=== PATIENT | female | born 1935 | race Caucasian/White ===

== ENCOUNTER → 2021-03-30 13:01 | Outpatient (BNVA) | payer MEDICARE, SELFPAY | PROVIDERS: Family Provider Emergency Medicine; PCP Emergency Medicine; Visit Provider Nurse Practitioner Family | DX: Z20.822 Contact with and (suspected) exposure to COVID-19 (principal) | CPT/HCPCS: 87635 ==

== ENCOUNTER 2023-04-21 10:20 | Outpatient (CLI) | payer MEDICARE, SELFPAY ==
--- NOTE | 2023-04-21 10:31 | MR_ITS ---
WS: [id number] MRI LUMBAR SPINE NONCONTRAST HISTORY: LUMBAR REGION RADICULOPATHY COMPARISON: None available. TECHNIQUE: Sagittal and axial multisequence imaging is submitted. Marked degenerative changes of the cervical and thoracic spine. Degenerative scoliosis and increased thoracic kyphosis. Components of mild cervical stenosis throughout the cervical spine. Central disc p rotrusion at T9-10 contacts the thoracic cord. L3 anterolisthesis by 4.4 mm. L4 anterolisthesis by 6.1 mm. L5 anterolisthesis by 5.3 mm. Disc spaces are narrowed with mild desiccation. No acute fractures or marrow edema. Conus terminates normally at L1. L1-L2: Mild bilateral facet joint arthritis and ligamentum flavum hypertrophy. No stenosis. L2-L3: Mild annular disc bulging encroaching upon the subarticular recesses and the traversing L3 ner ve roots. Mild central, bilateral subarticular recess and foraminal stenosis. L3-L4: Marked annular disc bulging with severe ligamentum flavum hypertrophy and facet arthritis. Fac et joints contain fluid and with mild widening. Moderate to severe central, bilateral subarticular re cess and foraminal stenosis. There is disc contacting the L3 and L4 nerve roots. L4-L5: Diffuse annular disc bulging with severe ligamentum flavum and facet arthritis. Increased flui d in the facet joints. Disc encroachment into the subarticular recesses with moderate central, bilate ral subarticular recess and foraminal stenosis. Disc contacts the L4 and L5 nerve roots. L5-S1: Annular disc bulge with a central disc protrusion. Disc contacts the S1 nerve roots centrally. Mild bilateral foraminal stenosis. Mild ectasia abdominal aorta. IMPRESSION: 1. L3-4: Moderate to severe central, bilateral subarticular recess and foraminal stenosis. Disc conta cts the L3 and L4 nerve roots. 2. L4-5: Moderate central, bilateral subarticular recess and foraminal stenosis. Disc contacts the L4 and L5 nerve roots. 3. L5-S1: Mild disc contact on the S1 nerve roots. Mild foraminal stenosis. 4. L2-3: Mild central, bilateral subarticular recess and foraminal stenosis. There is mild contact up on the traversing L3 nerve roots. 5. Component of cervical canal stenosis identified on the localizing image. 6. L3, L4 and L5 anterolisthesis, 4.4 mm, 6.1 mm, 5.3 mm respectively.
== END 2023-04-21 10:21 | disposition home or self-care (01) ==
LOC: RAD 10:24
PROVIDERS: PCP Emergency Medicine; Visit Provider Physician Assistant Medical
DX: M47.26 Other spondylosis with radiculopathy, lumbar region (principal); M51.36 Other intervertebral disc degeneration, lumbar region; M41.50 Other secondary scoliosis, site unspecified; M48.061 Spinal stenosis, lumbar region without neurogenic claudication
CPT/HCPCS: 72148

== ENCOUNTER 2023-08-02 12:29 | Emergency (ER) | payer MEDICARE, SELFPAY ==
[2023-08-02 12:34] VITALS: BP 177/63; PULSE 67; RESP 18; TEMP 36.8; O2SAT 99; BMI 31.9
--- NOTE | 2023-08-02 13:28 | XR_ITS ---
WS: [id number] Chest AP portable upright, with right rib detail, 4 views, 08/02/2023 Clinical Data: fall Comparison: None. Findings: The lungs show no nodules, masses, or effusions. The heart is normal. No pneumothorax is seen. There is minimal patchy opacity in the left lower lobe which could represent effusion, pneumonia or atelect asis. There is a small right pleural effusion. The aortic arch shows calcification and tortuosity. The ribs are intact. No rib fractures seen. No subcutaneous emphysema is present. Impression: 1. Minimal bilateral pleural effusions. 2. Patchy opacity in left lower lobe which could represent atelectasis and/or pneumonia. 3. Atherosclerosis. 4. Negative right rib detail.
--- NOTE | 2023-08-02 15:11 | W.ED.FALL ---
HPI - Fall General: Chief Complaint: Fall Stated Complaint: fell(week ago), right side abd pain Time Seen by Provider: 08/02/23 15:01 Source: patient Mode of arrival: wheelchair Limitations: no limitations History of Present Illness: Patient is a very nice 88-year-old female presents to ED today with a complaint of right rib pain. Patient tells me approximately 6 days ago she was turning trying to get into her recliner when she tripped and fell and struck her right ribs on a coffee table. Patient states she has had pain since. She states pain does not seem to be worsening but it does not seem to be improving either. Pain seems to be worse with movement, coughing, deep inhalation. Patient has not developed a cough. No fevers. She does not complain of abdominal pain. She denies striking her head or LOC. She has no other physical complaints apart from the right rib pain at this time. MD complaint: fall Onset (ago): day(s) Fall from: standing Fall witnessed: no Place fall occurred: home Loss of consciousness: None Prolonged down time: no Symptoms prior to fall: none Context: tripped/slipped Location of injury: chest Associated symptoms-after fall: Reports chest pain (R rib pain); Denies abdominal pain, headache(s), hematuria, lightheadedness or neck pain Review of Systems Const: Denies: fever(s), chills, body aches, fatigue or malaise Card: Reports: chest pain (R rib pain); Denies: palpitations, irregular heart rhythm, edema, swelling of feet/ankles, lightheadedness, syncope, pre-syncope, dyspnea on exertion, orthopnea, leg pain with exertion or acrocyanosis Resp: Reports: pain on inspiration; Denies: dyspnea, productive cough, non-productive cough, wheezing, stridor, change in phlegm color, hemoptysis or chest congestion GI: Denies: abdominal pain, nausea, vomiting or diarrhea : Denies: flank pain, dysuria or hematuria Musc: Denies: neck pain, back pain, extremity pain or joint pain Skin/Breast: Reports: other (ecchymosis R ribs) Neuro: Denies: headache(s), numbness in extremities, weakness in extremities or sensory changes PFS ED PFSH: Medical History Benign hypertension Hyperlipidemia Surgical History H/O: hysterectomy H/O vein stripping S/P cholecystectomy Social History Smoking and tobacco/nicotine status: former use of tobacco/nicotine Quit status (tobacco/nicotine): has quit using Year quit tobacco: 1999 Alcohol intake: never Substance/Drug Use: never Current gender identity: Female Female Reproductive History: Spontaneous abortions: No Physical Exam Const: COMMON NORMALS: no acute distress, average body habitus, patient oriented x3, no limitations, healthy appearing, alert and well nourished HENMT: COMMON NORMALS: normocephalic and atraumatic HEAD & SCALP: normal to inspection, normocephalic and atraumatic Neck/C-Spine: COMMON NORMALS: full ROM GENERAL: Yes normal visual inspection CERVICAL SPINE: No Cervical spine tenderness Chest: OTHER: healing/old yellowing ecchymosis R lateral ribs without underlying crepitus; lung sounds normal Resp: COMMON NORMALS: normal respiratory effort and clear to auscultation bilaterally AUSCULTATION: clear to auscultation bilaterally Cardio: COMMON NORMALS: regular rate and regular rhythm RATE: regular rate RHYTHM: regular rhythm GI: COMMON NORMALS: Normal to inspection, nondistended, normoactive bowel sounds present, Soft to palpation, non-tender, No hepatosplenomegaly present and no masses INSPECTION: Yes normal to inspection PALPATION: Yes Soft to palpation and Yes No hepatosplenomegaly present OTHER: no pain to RUQ : COMMON NORMALS: Yes no CVA tenderness BLADDER/KIDNEY EXAM: Yes no CVA tenderness Back/Pelvis: COMMON NORMALS: no CVA tenderness and thoracic and lumbar spine normal to inspection Extremity: COMMON NORMALS: normal to inspection GENERAL: Yes normal exam except as noted Neuro: COMMON NORMALS: patient oriented x3 SENSORIUM/ORIENTATION: Yes alert Course Vital Signs: Vital signs: Vital Signs Temperature 98.1 F 08/02/23 15:28 Pulse Rate 66 08/02/23 15:28 Respiratory Rate 18 08/02/23 15:28 Blood Pressure 147/82 08/02/23 15:28 Pulse Oximetry 93 08/02/23 15:28 Oxygen Delivery Me thod Room Air 08/02/23 15:18 MDM - Fall Medical Decision Making Patient has old/healing ecchymosis to her right lateral ribs without underlying crepitus. X-ray rib films is negative for acute rib fracture. There are minimal bilateral pleural effusions. Radiologist did comment on a patchy opacity in her left lower lobe that could represent atelectasis and/or pneumonia. Clinically I do not have any concern for pneumonia. Patient states her pain is not worsening and just has failed to improve which is fairly common following significant rib contusions. Her vital signs are stable. She has no tenderness to her abdomen or right upper quadrant. I do not have any concern for liver injury. She chronically takes 7.5 mg hydrocodone. Recommend she continue this. Discussed her rib fractures or even hairline rib fractures can sometimes take weeks to heal. Strict return ED precautions given. Medical Records I reviewed the patient's medical records. All radiology interpretation(s) finalized by discharge Discharge Plan Discharge Patient Disposition: Home Clinical Impression: Contusion of rib on right side Qualifiers: Encounter type: initial encounter Qualified Code(s): S20.211A - Contusion of right front wall of thorax, initial encounter Condition: Stable Prescriptions: No Action lovastatin 10 mg tablet 10 mg PO DAILY omeprazole 40 mg capsule,delayed release(DR/EC) 40 mg PO DAILY sucralfate 1 gram tablet 1 gm PO QID levothyroxine 50 mcg capsule 50 mcg PO DAILY hydrocodone-acetaminophen [[place]] 7.5-325 mg tablet 1 tab PO Q4H PRN (Reason: CHRONIC BACK PAIN ) losartan 25 mg tablet 100 mg PO DAILY Discharge Orders: Discharge ED (Routine); Ordered 08/02/23 Ordered By: Renee Saleem Referrals: Le Ibrahim MD [Primary Care Provider] - Patient Instructions: Rib Contusion (ED) Activity Restrictions/Additional Instructions: As we discussed you may continue taking your normal hydrocodone as needed for pain. You can take 1 tablet up to every 4-6 hours as needed. You may also try ice and heat. As we discussed you need to return to the emergency department for worsening chest pain, shortness of breath, difficulty breathing, fevers, severe abdominal pain, generally feeling worse or unwell, lightheadedness/dizziness, or any other concerns you may have. Hope you begin to feel better soon. Coding Level of Care Code ED Pump And Still Operator for Lexa Kothari
[2023-08-02 15:18] VITALS: BP 147/82; PULSE 66; RESP 18; TEMP 36.7; O2SAT 93
[2023-08-02 15:28] VITALS: BP 147/82; PULSE 66; RESP 18; TEMP 36.7; O2SAT 93
== END 2023-08-02 15:40 | disposition home or self-care (01) ==
PROVIDERS: Emergency Provider Physician Assistant; PCP Family Medicine
DX: S20.211A Contusion of right front wall of thorax, initial encounter (principal); I10 Essential (primary) hypertension; E78.5 Hyperlipidemia, unspecified; Z87.891 Personal history of nicotine dependence; W01.190A Fall on same level from slipping, tripping and stumbling with subsequent striking against furniture, initial encounter
CPT/HCPCS: 71101; 99283

== ENCOUNTER 2024-04-06 21:47 | Emergency (ER) | payer MEDICARE, SELFPAY ==
--- NOTE | 2024-04-06 21:53 | XRR_ITS ---
PROCEDURE INFORMATION: Exam: XR Chest Exam date and time: 04/06/2024 9:59 PM Age: 88 years old Clinical indication: Prior surgery; Surgery date: 6+ months; Surgery type: Gb; Patient HX: General weakness with fever; Additional info: Fatigue TECHNIQUE: Imaging protocol: Radiologic exam of the chest. Views: 1 view. COMPARISON: CR XR ribs RT mn 3V w CXR1V [id number] 08/02/2023 1:35 PM FINDINGS: Lungs: Mild left peripheral basilar atelectasis again noted. No consolidation. Pleural spaces: Unremarkable. No pleural effusion. No pneumothorax. Heart/Mediastinum: Unremarkable. No cardiomegaly. Diaphragm: Mild elevation of the right hemidiaphragm. Bones/joints: Unremarkable. XR/XR chest 1V portable [id number] IMPRESSION: 1. No clear-cut acute plain radiographic cardiopulmonary abnormality. 2. Mild elevation of the right hemidiaphragm.
[2024-04-06 21:58] VITALS: BP 161/64; PULSE 59; RESP 18; TEMP 36.9; O2SAT 99; BMI 32.5
--- NOTE | 2024-04-06 22:01 | ED_ITS ---
HPI - General Adult 2 General: Chief complaint: Fever Stated complaint: GENERAL MALAISE Time Seen by Provider: 04/06/24 21:53 History of Present Illness: Patient presents from [facility] with complaints of general malaise nausea shortness of breath and fever going on for the last 2 to 3 days. Patient has no localized complaints she says she does not feel good all over. Patient is not been around any sick contacts that she knows of. Related Data Home Medications Medication Instructions Recorded Confirmed hydrocodone 7.5 mg-acetaminophen 1 tab PO Q4H PRN CHRONIC BACK PAIN 04/11/20 04/25/23 325 mg tablet ([place]) levothyroxine 50 mcg capsule 50 mcg PO DAILY 04/11/20 04/25/23 lovastatin 10 mg tablet 10 mg PO DAILY 04/11/20 04/25/23 omeprazole 40 mg capsule,delayed 40 mg PO DAILY 04/11/20 04/25/23 release sucralfate 1 gram tablet 1 gm PO QID 04/11/20 04/25/23 losartan 25 mg tablet 100 mg PO DAILY 04/25/23 04/25/23 Allergies Allergy/AdvReac Type Severity Reaction Status Date / Time No Known Allergies Allergy Verified 04/25/23 11:17 Review of Systems 2 General: Reports: 10 or more systems reviewed and unremarkable except in HPI and below PFSH ED 2 PFSH: Medical History Benign hypertension Hyperlipidemia Surgical History H/O: hysterectomy H/O vein stripping S/P cholecystectomy Social History Smoking and tobacco/nicotine status: former use of tobacco/nicotine Quit status (tobacco/nicotine): has quit using Year quit tobacco: 1999 Alcohol intake: never Substance/Drug Use: never Current gender identity: Female Female Reproductive History: Spontaneous abortions: No Physical Exam 2 Const: COMMON NORMALS: no acute distress, average body habitus, patient oriented x3, no limitations, healthy appearing, alert and well nourished HENMT: COMMON NORMALS: normocephalic, atraumatic, hearing grossly normal bilaterally, external ears normal, Normal external nose present and moist oral mucous membranes HEAD & SCALP: normocephalic and atraumatic NOSE: Normal external nose present EXTERNAL EAR: Yes external ears normal Neck/C-Spine: COMMON NORMALS: full ROM, no lymphadenopathy, supple, no meningeal signs, no JVD and Thyroid normal THYROID: Thyroid normal Chest: COMMONS NORMALS: normal inspection of the chest and normal palpation of entire chest wall Resp: COMMON NORMALS: normal respiratory effort, No retractions, No use of accessory muscles and clear to auscultation bilaterally AUSCULTATION: clear to auscultation bilaterally Cardio: COMMON NORMALS: no JVD, regular rate, regular rhythm, S1 normal heart sound present, S2 normal heart sound present, No gallops present (Cardio), No clicks present (Cardio), No murmurs present (Cardio) and No rub (Cardio) R ATE: regular rate RHYTHM: regular rhythm HEART SOUNDS: S1 normal heart sound present and S2 normal heart sound present GI: COMMON NORMALS: Normal to inspection, nondistended, normoactive bowel sounds present, Soft to palpation, non-tender, No hepatosplenomegaly present and no masses PALPATION: Yes Soft to palpation and Yes No hepatosplenomegaly present Neuro: COMMON NORMALS: patient oriented x3 SENSORIUM/ORIENTATION: Yes alert MENINGEAL SIGNS: Yes no meningeal signs Course 2 Vital Signs: Vital signs: Vital Signs Temperature 98.4 F 04/06/24 21:58 Pulse Rate 61 04/06/24 23:00 Respiratory Rate 16 04/06/24 23:00 Blood Pressure 149/62 04/06/24 23:00 Pulse Oximetry 96 04/06/24 23:00 [facility] - General Adult Medical Decision Making Lab work was obtained which was essentially benign except patient did test positive for COVID. Patient be discharged home. Medical Records I reviewed the patient's medical records. Lab Data I reviewed the patient's lab results. 04/06/24 21:56 04/06/24 21:56 Radiology Impressions Chest X-Ray 04/06/24 21:53 IMPRESSION: 1. No clear-cut acute plain radiographic cardiopulmonary abnormality. 2. Mild elevation of the right hemidiaphragm. Laboratory Results WBC 5.66 10^3/uL (3.29-11.43) 04/06/24 21:56 RBC 3.42 10^6/uL (3.85-5.65) L 04/06/24 21:56 Hgb 10.40 g/dL (11.27-16.99) L 04/06/24 21:56 Hct 32.5 % (36-47) L 04/06/24 21:56 MCV 95.0 fl (85-98) 04/06/24 21:56 MCH 30.4 pg (27-33) 04/06/24 21:56 MCHC 32.0 g/dL (30-55) 04/06/24 21:56 RDW 12.6 % (12.1-15.1) 04/06/24 21:56 Plt Count 154 10^3/cmm (157-399) L 04/06/24 21:56 MPV 11.3 fL (7.4-10.4) H 04/06/24 21:56 Neut % (Auto) 70.1 % 04/06/24 21:56 Lymph % (Auto) 15.7 % 04/06/24 21:56 [place] % (Auto) 13.4 % 04/06/24 21:56 Eos % (Auto) 0.0 % 04/06/24 21:56 Baso % (Auto) 0.4 % 04/06/24 21:56 Neut # (Auto) 3.97 10^3/uL (1.8-7.7) 04/06/24 21:56 Lymph # (Auto) 0.9 10^3/uL (0.8-4.8) 04/06/24 21:56 [place] # (Auto) 0.8 10^3/uL (0.2-0.9) 04/06/24 21:56 Eos # (Auto) 0.0 10^3/uL (0.0-0.8) 04/06/24 21:56 Baso # (Auto) 0.0 10^3/uL (0.0-0.1) 04/06/24 21:56 Nucleated RBC % (auto) 0 % 04/06/24 21:56 Nucleated RBCs # 0.0 /100WBC 04/06/24 21:56 Sodium 130 mmol/L (136-145) L 04/06/24 21:56 Potassium 3.5 mmol/L (3.5-5.1) 04/06/24 21:56 Chloride 96 mmol/L (98-107) L 04/06/24 21:56 Carbon Dioxide 22 mmol/L (22-29) 04/06/24 21:56 Anion Gap 15.5 (5-19) 04/06/24 21:56 BUN 13 mg/dL (8-23) 04/06/24 21:56 Creatinine 1.0 mg/dL (0.5-0.9) H 04/06/24 21:56 GFR Calculation Not Reportable 04/06/24 21:56 Glucose 138 mg/dL (65-115) H 04/06/24 21:56 Calculated Osmolality 272 mOsm/kg (285-295) L 04/06/24 21:56 Calcium 7.4 mg/dL (8.5-10.5) L 04/06/24 21:56 Total Bilirubin 0.2 mg/dL (0.15-1.2) 04/06/24 21:56 AST 20 U/L (0-32) 04/06/24 21:56 ALT 15 U/L (0-33) 04/06/24 21:56 Alkaline Phosphatase 69 U/L (35-105) 04/06/24 21:56 Total Protein 5.9 g/dL (6.6-8.7) L 04/06/24 21:56 Albumin 3.4 g/dL (3.5-5.2) L 04/06/24 21:56 Globulin 2.5 g/dL (1.3-4.6) 04/06/24 21:56 TSH 1.77 uIU/mL (0.27-4.20) 04/06/24 21:56 Urine Color Yellow (Yellow) 04/06/24 22:28 Urine Appearance Cloudy (CLEAR) A 04/06/24 22:28 Urine pH 5.5 (5-7) 04/06/24 22:28 Ur Specific [place] 1.017 (1.005-1.030) 04/06/24 22:28 Urine Protein Neg (Negative) 04/06/24 22:28 Urine Glucose (UA) Norm (Normal) 04/06/24 22:28 Urine Ketones Trace (Negative) H 04/06/24 22:28 Urine Blood Neg (Negative) 04/06/24 22:28 Urine Nitrate Negative (Negative) 04/06/24 22:28 Urine Bilirubin Neg (Negative) 04/06/24 22:28 Urine Urobilinogen 1.0 mg/dL (Negative) 04/06/24 22:28 Ur Leukocyte Esterase Negative (Negative) 04/06/24 22:28 Urine RBC 0-4 /hpf (0-2) H 04/06/24 22:28 Urine WBC 0-4 /hpf (0-5) H 04/06/24 22:28 Ur Squamous Epith Cells 0-4 /hpf (0-5) H 04/06/24 22:28 Amorphous Sediment Not Reportable 04/06/24 22:28 Urine Bacteria None /hpf (NONE) 04/06/24 22:28 Hyaline Casts 0.40 /lpf 04/06/24 22:28 Coronavirus (PCR) Positive (Negative) A 04/06/24 22:02 Influenza A (PCR) Negative (Negative) 04/06/24 22:02 Influenza Type B (PCR) Negative (Negative) 04/06/24 22:02 RSV (PCR) Negative (Negative) 04/06/24 22:02 All radiology interpretation(s) finalized by discharge Discharge Plan Discharge Patient Disposition: Home Clinical Impression: COVID Clinical Impression: (Ruled Out): Influenza Condition: Stable Prescriptions: No Action lovastatin 10 mg tablet 10 mg PO DAILY omeprazole 40 mg capsule,delayed release(DR/EC) 40 mg PO DAILY sucralfate 1 gram tablet 1 gm PO QID levothyroxine 50 mcg capsule 50 mcg PO DAILY hydrocodone-acetaminophen [[place]] 7.5-325 mg tablet 1 tab PO Q4H PRN (Reason: CHRONIC BACK PAIN ) losartan 25 mg tablet 100 mg PO DAILY Discharge Orders: Discharge ED (Routine); Ordered 04/06/24 Ordered By: Delano Waters Referrals: Le Ibrahim MD [Primary Care Provider] - 1 week Patient Instructions: COVID-19 (Coronavirus Disease 2019) (ED) Activity Restrictions/Additional Instructions: Thank you for choosing [facility] for your healthcare needs today. Please realize that you were seen in the emergency department and that we are providing you with an emergency medical screening exam and this may not be a complete and all exclusive of all testing and/or medical workup we may need to determine your element or severity of your illness. It is very important that you follow-up as instructed with your primary care provider or specialist for the additional evaluation and to discuss your medical treatment plan. You may return to the emergency department should you have concerns or if your condition changes or worsens in any way. Coding Level of Care Code ED Cloth Desizing Range Operator Chief for Lexa Kothari
[2024-04-06 22:08] VITALS: BP 150/57; PULSE 55; RESP 16; O2SAT 98
[2024-04-06 22:08] LABS: Basophils % 0.4 %; Hematocrit 32.5 % (36-47); Lymphocytes # 0.9 10^3/uL (0.8-4.8); Lymphocytes % 15.7 %; Mean Corpuscular Hemoglobin 30.4 pg (27-33); Mean Platelet Volume 11.3 fL (7.4-10.4); Monocytes # 0.8 10^3/uL (0.2-0.9); Monocytes % 13.4 %; Neutrophils # 3.97 10^3/uL (1.8-7.7); Neutrophils % 70.1 %; Nucleated Red Blood Cells % 0 %; Platelet Count 154 10^3/cmm (157-399); Red Blood Count 3.42 10^6/uL (3.85-5.65); Red Cell Distribution Width 12.6 % (12.1-15.1); White Blood Count 5.66 10^3/uL (3.29-11.43)
[2024-04-06 22:32] LABS: Alanine Aminotransferase 15 U/L (0-33); Albumin Level 3.4 g/dL (3.5-5.2); Alkaline Phosphatase 69 U/L (35-105); Anion Gap 15.5 (5-19); Aspartate Amino Transferase 20 U/L (0-32); Blood Urea Nitrogen 13 mg/dL (8-23); Calcium 7.4 mg/dL (8.5-10.5); Carbon Dioxide 22 mmol/L (22-29); Chloride 96 mmol/L (98-107); Creatinine Clr Calc Pharmacy 36.7641; Globulin 2.5 g/dL (1.3-4.6); Glucose 138 mg/dL (65-115); Osmolality Calculated 272 mOsm/kg (285-295); Potassium 3.5 mmol/L (3.5-5.1); Sodium 130 mmol/L (136-145); Thyroid Stimulating Hormone 1.77 uIU/mL (0.27-4.20); Total Bilirubin 0.2 mg/dL (0.15-1.2); Total Protein 5.9 g/dL (6.6-8.7)
[2024-04-06 22:33] VITALS: BP 143/60; PULSE 58; RESP 16; O2SAT 99
[2024-04-06 22:44] LABS: Charge for UA Resulting for Rev
[2024-04-06 22:52] LABS: Influenza A NEGATIVE (Negative); Influenza B NEGATIVE (Negative); Respiratory Syncytial Virus Ce NEGATIVE (Negative)
[2024-04-06 22:54] LABS: Covid PCR Positive (Negative)
[2024-04-06 23:00] VITALS: BP 149/62; PULSE 61; RESP 16; O2SAT 96
[2024-04-06 23:07] LABS: Specific Gravity, Urine 1.017 (1.005-1.030); Urine Appearance Cloudy (CLEAR); Urine Color Yellow (Yellow); pH Urine 5.5 (5-7)
[2024-04-06 23:08] LABS: Bilirubin Urine Neg (Negative); Blood Urine Neg (Negative); Glucose Urine UA Norm (Normal); Ketones Urine Trace (Negative); Leukocyte Esterase Urine Negative (Negative); Nitrate Urine Negative (Negative); Protein Urine Neg (Negative); RBC Urine 0-4 /hpf (0-2); Squamous Epithelial Cell Urine 0-4 /hpf (0-5); WBC Urine 0-4 /hpf (0-5)
[2024-04-06 23:14] VITALS: BP 149/62; PULSE 57; RESP 16; O2SAT 94
== END 2024-04-06 23:15 | disposition home or self-care (01) ==
PROVIDERS: Emergency Provider Emergency Medicine; PCP Family Medicine
DX: U07.1 COVID-19 (principal); I10 Essential (primary) hypertension; E78.5 Hyperlipidemia, unspecified; Z87.891 Personal history of nicotine dependence
CPT/HCPCS: 0241U; 36415; 71045; 80053; 81003; 81015; 84443; 85025; 99285

== ENCOUNTER 2024-05-25 06:14 | Outpatient (CLI) | payer MEDICARE, SELFPAY ==
--- NOTE | 2024-05-25 06:45 | US_ITS ---
WS: [id number] ULTRASOUND SOFT TISSUES RIGHT chest wall. HISTORY: 1 month painful irregular 2cm soft tissue mass midaxillary COMPARISON: Chest radiograph reviewed from 04/06/2024 TECHNIQUE: 2-D and color Doppler imaging is submitted. Heterogeneous mass with a few cystic areas along the RIGHT chest wall at the area of the palpable abn ormality. In its entirety this area measures 2.9 x 1.1 x 2.7 cm. There are few cystic areas. This is predominantly solid area which is nearly isoechoic to the adjacent soft tissues. No increased vascula rity. US/US chest [id number] IMPRESSION: Nonspecific appearing heterogeneous mass in the RIGHT chest wall near the axill a as indicated by the patient. This does not appear to be a lymph node. Does kenney ve a small amount of edema and if few cystic areas. This may be an area of a pr ior contusion with edema. Area of fat necrosis should be considered. Soft tissu e neoplasm cannot be completely excluded. If this continues to cause pain or in crease in size suggest chest CT follow-up with IV contrast.
== END 2024-05-25 06:15 | disposition home or self-care (01) ==
LOC: RAD 06:15
PROVIDERS: PCP Family Medicine; Visit Provider Family Medicine
DX: R19.00 Intra-abdominal and pelvic swelling, mass and lump, unspecified site (principal)
CPT/HCPCS: 76604

== ENCOUNTER → 2024-05-29 07:56 | Outpatient (BNVA) | payer MEDICARE, SELFPAY | PROVIDERS: PCP Family Medicine; Referring Provider Family Medicine; Visit Provider Surgery | DX: R19.00 Intra-abdominal and pelvic swelling, mass and lump, unspecified site (principal) | CPT/HCPCS: 99203 ==

== ENCOUNTER 2024-06-11 09:00 | Day surgery (SDC) | payer MEDICARE, SELFPAY ==
[2024-06-11] VITALS (9 sets, daily range): BP systolic 110–166; BP diastolic 56–80; PULSE 60–70; RESP 12–17; TEMP 36.3–36.6; O2SAT 93–100; BMI 31.9
--- NOTE | 2024-06-11 09:45 | W.PM.OPSUD ---
Surgery/Procedure H&P Update DATE OF PROCEDURE: June 11, 2024 DATE H&P PERFORMED: 05/29/24 H&P UPDATE INFORMATION: I have reviewed H&P completed within last 30 days, I have examined patient prior to procedure, No changes to prior documentation and H&P is in [facility] [place] indicated PLANNED PROCEDURE: Operation Date: 06/11/24 10:20 Proposed Procedures p excision of right flank mass(Right) - Harry Rincon MD
--- NOTE | 2024-06-11 09:48 | ECG_ITS ---
[employer] Test Date: 2024-06-11 Pat Name: Annette Egan Department: Room: Gender: Female Test Tech: : 1935 Requested By: Kentrell Mcginnis Order Number: [id number] Reading MD: Measurements Intervals [place] Rate: 55 P: 225 IL: 145 QRS: -22 QRSD: 87 T: -4 QT: 406 QTc: 390 Interpretive Statements SINUS BRADYCARDIA LOW QRS VOLTAGE IN PRECORDIAL LEADS [QRS DEFLECTION < 1.0 mV IN CHEST LEADS] MINIMAL VOLTAGE CRITERIA FOR LVH, CONSIDER NORMAL VARIANT [MEETS CRITERIA IN ONE OF: R(aVL), S(V1), R(V5), R(V5/V6)+S(V1)] POSSIBLE ANTERIOR MYOCARDIAL INFARCTION , OF INDETERMINATE AGE [30 ms Q WAVE IN V3/V4, OR R < 0.2 mV IN V4] No previous ECG available for comparison [email or web address]
--- NOTE | 2024-06-11 10:56 | P.ANESASSM_ITS ---
Pre-Anesthetic Assessment Height/Weight: Height 5 ft 1 in Weight 169 lb Temp Pulse Resp BP Pulse Ox O2 Del Method 97.3 F L 70 16 166/80 97 Room Air 06/11/24 09:22 06/11/24 09:22 06/11/24 09:22 06/11/24 09:22 06/11/24 09:22 06/11/24 09:22 Preop Diagnosis: Abdominal mass Operation Date: 06/11/24 10:20 Proposed Procedures p excision of right flank mass(Right) - Harry Rincon MD Was Beta Floyd taken within 24 hours: N/A Was Clonidine taken within 24 hours: N/A Social No alcohol and No tobacco Exam alert, oriented x 3, clear to auscultation bilaterally and regular rate & rhythm Airway Submandibular: within normal limits Cervical ROM: within normal limits Mallampati: Class III Dentition: false Anesthetic Plan ASA status: 3 Anesthesia: General Other: No prior issues with anesthesia NPO since yesterday History of hypertension on losartan and chlorthalidone Hypothyroidism on Synthroid Stage III CKD Type 2 diabetes, not on insulin EKG showed sinus bradycardia Plan for general anesthesia with LMA Medications/Allergies Home Medications Medication Instructions Recorded Confirmed Last Taken Type levothyroxine 50 mcg capsule 50 mcg PO DAILY 04/11/20 06/07/24 06/07/24 History lovastatin 10 mg tablet 10 mg PO DAILY 04/11/20 06/07/24 06/07/24 History omeprazole 40 mg capsule,delayed 40 mg PO DAILY 04/11/20 06/07/24 06/07/24 History release sucralfate 1 gram tablet 1 gm PO QID 04/11/20 06/07/24 06/07/24 History hydrocodone 5 mg-acetaminophen 325 1 tab PO BID PRN pain 60 days #60 05/09/24 06/07/24 06/07/24 Rx mg tablet tabs baclofen 10 mg tablet 10 mg PO DAILY #30 tabs 05/14/24 06/07/24 06/07/24 Rx chlorthalidone 25 mg tablet 25 mg PO DAILY #90 tabs 05/14/24 06/07/24 06/01/24 Rx doxepin 25 mg capsule 25 mg PO DAILY #30 caps 05/14/24 06/07/24 Unknown Rx oxybutynin chloride 5 mg 5 mg PO DAILY #90 tabs 05/14/24 06/07/24 06/11/24 Rx tablet,extended release 24 hr losartan 100 mg tablet 100 mg PO DAILY #90 tabs 05/21/24 06/07/24 06/07/24 Rx gabapentin 300 mg capsule 300 mg PO DAILY 06/07/24 06/07/24 06/07/24 History Allergies Allergy/AdvReac Type Severity Reaction Status Date / Time No Known Allergies Allergy Verified 05/29/24 08:05 [facility] Anesthesia Medical History Paroxysmal SVT (supraventricular tachycardia) zio at [facility] 11/22 4 episodes of 4 beats SVT Osteoporosis 8.7.24 at [facility]; femoral neck -2.4--hip is decreased; repeat 1yr Osteoarthritis, generalized CKD stage 3a, GFR 45-59 ml/min Postcholecystectomy diarrhea GERD without esophagitis Adult onset hypothyroidism Encounter for chronic pain management Pain management contract signed .04.24 Controlled type 2 diabetes mellitus without complication, without long-term current use of insulin Chronic back pain greater than 3 months duration with R sided sciatica; has had several WHIT in past; las WHIT 1.31.24 R side Mass of soft tissue of abdomen started 04/24--midaxillary line R lower rib cage area Benign hypertension Hyperlipidemia Surgical History Hx of cardiac cath 2016--normal Hx of colonoscopy 2007--diverticulosis History of anterior colporrhaphy cystocele repair fall 2010 and 09/12 Hx of laparoscopy 03/12--adhesions and extensive diverticulosis H/O: hysterectomy ovaries remaining; not cancer H/O vein stripping bilateral S/P cholecystectomy Family History Father Heart disease Rheumatoid arthritis Mother No problems noted. 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
[2024-06-11] MEDS: ceFAZolin 2,000 mg SDV 2000 MG IVP (12:30)
[2024-06-11] MEDS: BUPivacaine 0.25% INJ 30 mL 10 ML INJECTION (13:16)
[2024-06-11] MEDS: lidocaine-epi 1% PF 1:200,000 30 mL SDV 10 ML INJECTION (13:17)
--- NOTE | 2024-06-11 13:23 | P.OP_ITS ---
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 Procedure: Patient was brought into the OR, she was placed in a supine position. General anesthesia with LMA was given. She was then placed in left lateral decubitus position. The right flank was prepped and draped in usual sterile fashion. Timeout was conducted. 5 cm incision was made overlying the area that was marking the preop area. The incision was deepened to subcutaneous tissue, this level an indurated mass was noted, there is mass had an elongated shape measuring 4 x 2 cm. The mass was circumferentially dissected from the surrounding tissue using commendation of blunt dissection and electrocautery. The mass was completely excised from the tissue using electrocautery, it was noted to stand on the lower aspect all the way down to the level of the fascia. The mass was passed for pathology. Hemostasis was obtained. No residual tissue was noted. The wound was irrigated with saline. The wound was then closed in layers using #2-0 Vicryl for the deep tissue, #3 Vicryl subcutaneous tissue #4 Monocryl for the skin. Local anesthesia was applied. A sterile dressing was applied after Dermabond. At the end of the procedure all counts were correct, the patient tolerated well the procedure was transferred to the PACU in stable condition.
--- NOTE | 2024-06-11 15:00 | ANE.PACU2 ---
Inpatient post-anesthesia follow up: Airway intact: Yes Vital signs: Temperature 97.9 F Pulse Rate 62 Respiratory Rate 17 Blood Pressure 156/76 Pulse Oximetry 95 Oxygen Delivery Me thod Room Air Oxygen Flow Rate 6 Fraction of Inspir ed Oxygen Hydration adequate: Yes Nausea and vomiting: No Pain level: 1 Mental status: Baseline
== END 2024-06-11 15:00 | disposition home or self-care (01) ==
PROVIDERS: PCP Family Medicine; Visit Provider Surgery
PROC: (CPT 11404; principal; 2024-06-11 10:10)
DX: R22.2 Localized swelling, mass and lump, trunk (principal); E03.9 Hypothyroidism, unspecified; E11.22 Type 2 diabetes mellitus with diabetic chronic kidney disease; I12.9 Hypertensive chronic kidney disease with stage 1 through stage 4 chronic kidney disease, or unspecified chronic kidney disease; N18.30 Chronic kidney disease, stage 3 unspecified; E78.5 Hyperlipidemia, unspecified; Z87.891 Personal history of nicotine dependence
CPT/HCPCS: 11404; 12032; 88307; 93005; J0690; J2405; J2704; J3010; J3490

== ENCOUNTER → 2024-06-19 14:43 | Outpatient (BNVA) | payer MEDICARE, SELFPAY | PROVIDERS: PCP Family Medicine; Visit Provider Family Medicine | DX: I10 Essential (primary) hypertension (principal); E11.9 Type 2 diabetes mellitus without complications; E03.8 Other specified hypothyroidism; K21.9 Gastro-esophageal reflux disease without esophagitis; N18.31 Chronic kidney disease, stage 3a; R35.0 Frequency of micturition; D64.9 Anemia, unspecified; M54.9 Dorsalgia, unspecified; G89.29 Other chronic pain; Z23 Encounter for immunization; M15.9 Polyosteoarthritis, unspecified; N32.81 Overactive bladder | CPT/HCPCS: 80053; 81000; 82043; 82607; 83036; 83540; 84439; 84443; 85025; 87077; 87086; 87184 ==

== ENCOUNTER → 2024-06-27 08:16 | Outpatient (BNVA) | payer MEDICARE, SELFPAY | PROVIDERS: PCP Family Medicine; Visit Provider Surgery | DX: R19.00 Intra-abdominal and pelvic swelling, mass and lump, unspecified site (principal) | CPT/HCPCS: 99024 ==

== ENCOUNTER 2024-11-14 22:41 | Inpatient (IN) | payer MEDICARE, SELFPAY ==
--- NOTE | 2024-11-14 22:44 | XRR_ITS ---
PROCEDURE INFORMATION: Exam: XR Left Ankle Exam date and time: 11/15/2024 12:45 AM Age: 89 years old Clinical indication: Injury or trauma; Fall; Blunt trauma; Ankle; Left TECHNIQUE: Imaging protocol: Radiologic exam of the left ankle. Views: 3 or more views. COMPARISON: CR XR Knee 3 View Bilateral 11/09/2022 11:55 AM FINDINGS: Bones/joints: Mildly displaced medial malleolus and distal fibula fracture. There may also be a nondisplaced posterior malleolus fracture. No dislocation. Joint effusion. Soft tissues: Soft tissue swelling. XR/XR ankle LT min 3V* [id number] IMPRESSION: Acute medial malleolus and distal fibula fracture with possible nondisplaced posterior malleolus fracture.
[2024-11-14 22:45] VITALS: BP 135/81; PULSE 82; RESP 18; TEMP 36.6; O2SAT 16
[2024-11-15] VITALS (23 sets, daily range): BP systolic 112–180; BP diastolic 46–101; PULSE 55–78; RESP 12–18; TEMP 36.2–36.8; O2SAT 92–99
--- NOTE | 2024-11-15 00:05 | XRR_ITS ---
PROCEDURE INFORMATION: Exam: XR Left Hip Exam date and time: 11/15/2024 12:49 AM Age: 89 years old Clinical indication: Injury or trauma; Fall; Blunt trauma (contusions or hematomas); Left; Hip; Additional info: Fall/pain TECHNIQUE: Imaging protocol: Radiologic exam of the left hip. Views: 2 or 3 views hip with pelvis when performed. COMPARISON: CR XR hip BI 3-4V wo/w pel [id number] 11/09/2022 11:55 AM FINDINGS: Bones/joints: No acute fracture or dislocation. Soft tissues: No radiopaque foreign body. XR/XR hip LT 2-3V wo/w pel* [id number] IMPRESSION: No acute bony findings.
--- NOTE | 2024-11-15 00:05 | XRR_ITS ---
PROCEDURE INFORMATION: Exam: XR Left Shoulder Exam date and time: 11/15/2024 12:57 AM Age: 89 years old Clinical indication: Pain; Shoulder; Left; Additional info: Fall/pain TECHNIQUE: Imaging protocol: Radiologic exam of the left shoulder. Views: 2 or more views. COMPARISON: CR XR chest 1V portable [id number] 04/06/2024 9:59 PM FINDINGS: Bones/joints: No acute fracture or dislocation. Degenerative joint disease. Soft tissues: No radiopaque foreign body. XR/XR shoulder LT min 2V* [id number] IMPRESSION: No acute bony findings.
--- NOTE | 2024-11-15 00:11 | ECG_ITS ---
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 Measurements Intervals [place] Rate: 61 P: 132 [place]: 192 QRS: -19 QRSD: 93 T: 151 QT: 392 QTc: 397 Interpretive Statements SINUS RHYTHM LOW QRS VOLTAGE IN PRECORDIAL LEADS [QRS DEFLECTION < 1.0 mV IN CHEST LEADS] INCOMPLETE RIGHT BUNDLE BRANCH BLOCK [90+ ms QRS DURATION, TERMINAL R IN V1/V2, 40+ ms S IN I/aVL/V4/V5/V6] POSSIBLE ANTERIOR MYOCARDIAL INFARCTION , PROBABLY OLD [30 ms Q WAVE IN V3/V4, OR R < 0.2 mV IN V4] Compared to ECG 06/11/2024 09:48:03 Incomplete right bundle-branch block now present Myocardial infarct finding still present Electronically Signed On 11-16-2024 09:06:29 CDT by Angelica Lei M.D. [email or web address]
--- NOTE | 2024-11-15 00:25 | W.ED.EXTPRO ---
Documented by User: NANCY Kapadia 11/18/24 13:25 HPI - Extremity Problem General: Chief complaint: Extremity Injury, Lower Stated complaint: FALL, LEFT ANKLE PAIN Time Seen by Provider: 11/14/24 23:37 Source: patient and family Mode of arrival: EMS Limitations: no limitations History of Present Illness: Patient is an 89-year-old female who presents the emergency department by EMS for a fall that occurred approximately 2 hours prior to presenting. Patient states she had a mechanical fall where she twisted her left ankle and fell to the ground, falling onto her left hip and left shoulder. Denies hitting her head or losing consciousness, however states she was unable to get up under her own power and had to crawl into the house to get to the phone. Ambulance was called she was apparently on the ground for about an hour, on EMS arrival they were able to assist her up and on the way to the ED she was given 50 mcg of fentanyl as well as Tylenol. They also put the patient in a splint to her left ankle due to the amount of swelling, patient states she did not hit her head or lose consciousness. No symptoms prior to the fall such as chest pain, shortness of breath, palpitations, or dizziness/lightheadedness. Stating her pain is under control at this time. Vitals are unremarkable. She is not on a blood thinner. MD Complaint: joint pain (Left shoulder, ankle, hip) Onset (ago): hour(s) Pain Consistency: constant Location: left and lower extremity Associated symptoms: Deny chest pain, fever(s) or rash Related Data Home Medications ?Medication ?Instructions ?Recorded ?Confirmed aspirin 81 mg tablet,delayed 81 mg PO DAILY 11/15/24 11/15/24 release (Robyn Low Dose Aspirin) Previous Rx's ?Medication ?Instructions ?Recorded levothyroxine 50 mcg tablet 50 mcg PO DAILY #90 tabs 06/19/24 omeprazole 40 mg capsule,delayed 40 mg PO DAILY #90 caps 07/23/24 release chlorthalidone 25 mg tablet 25 mg PO DAILY #90 tabs 07/27/24 losartan 100 mg tablet 100 mg PO DAILY #90 tabs 09/24/24 gabapentin 300 mg capsule 300 mg PO TID #270 caps 10/02/24 oxybutynin chloride 10 mg 10 mg PO DAILY #90 tabs 10/03/24 tablet,extended release 24 hr baclofen 10 mg tablet 10 mg PO DAILY #90 tabs 10/23/24 doxepin 25 mg capsule See Rx Instructions .Route 10/23/24 .COMPLEX #90 caps hydrocodone 5 mg-acetaminophen 325 1 tab PO BID PRN pain 30 days #60 11/14/ mg tablet tabs Allergies Allergy/AdvReac Type Severity Reaction Status Date / Time No Known Allergies Allergy Verified 07/27/24 08:45 Review of Systems General: Reports: 10 or more systems reviewed and unremarkable except in HPI and below Const: Reports: other (fall); Denies: fever(s), chills or fatigue Eyes: Denies: change in vision ENMT: Denies: throat pain, ear or mastoid pain or nasal discharge Card: Denies: chest pain, palpitations, swelling of feet/ankles or lightheadedness Resp: Denies: dyspnea, productive cough or wheezing GI: Denies: abdominal pain, nausea, vomiting, diarrhea or constipation : Denies: flank pain, difficulty voiding, dysuria or urinary frequency Musc: Reports: joint pain (Left ankle, hip, shoulder) and joint swelling (Left ankle); Denies: neck pain or back pain Skin/Breast: Denies: rash Neuro: Denies: headache(s), numbness in extremities or weakness in extremities PFSH ED PFSH: Medical History Overactive bladder Paroxysmal SVT (supraventricular tachycardia) zio at [facility] 11/22 4 episodes of 4 beats SVT Osteoporosis 8.7.24 at [facility]; femoral neck -2.4--hip is decreased; repeat 1yr Osteoarthritis, generalized CKD stage 3a, GFR 45-59 ml/min Postcholecystectomy diarrhea GERD without esophagitis Adult onset hypothyroidism Encounter for chronic pain management Pain management contract signed 10.24 Controlled type 2 diabetes mellitus without complication, without long-term current use of insulin Chronic back pain greater than 3 months duration with R sided sciatica; has had several WHIT in past; las WHIT 1.31.24 R side Benign hypertension Hyperlipidemia Surgical History Mass of soft tissue of abdomen started 04/24--midaxillary line R lower rib cage area; surgically removed 11/24--benign Hx of cardiac cath 2016--normal Hx of colonoscopy 2007--diverticulosis History of anterior colporrhaphy cystocele repair fall 2010 and 09/12 Hx of laparoscopy 03/12--adhesions and extensive diverticulosis H/O: hysterectomy ovaries remaining; not cancer H/O vein stripping bilateral S/P cholecystectomy Family History Father Heart disease Rheumatoid arthritis Mother No problems noted. 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 Current gender identity: Female Female Reproductive History: Spontaneous abortions: No Physical Exam Const: COMMON NORMALS: no acute distress, patient oriented x3, no limitations, healthy appearing and alert GENERAL APPEARANCE: cooperative ORIENTATION/CONSCIOUSNESS: Yes awake HENMT: COMMON NORMALS: normocephalic and atraumatic HEAD & SCALP: normocephalic and atraumatic; no Kelly's sign and no raccoon eyes FACE & SINUS: normal facial exam and face symmetric Eye: COMMON NORMALS: Equal, round and reactive pupils present, EOMs intact bilaterally and conjunctivae normal CONJUNCTIVA: Yes conjunctivae normal PUPIL: Yes Equal, round and reactive pupils present Neck/C-Spine: COMMON NORMALS: full ROM and supple OTHER: No cervical spine tenderness Chest: COMMONS NORMALS: normal inspection of the chest and normal palpation of entire chest wall Resp: COMMON NORMALS: normal respiratory effort, No retractions, No use of accessory muscles and clear to auscultation bilaterally AUSCULTATION: clear to auscultation bilaterally Cardio: COMMON NORMALS: regular rate, regular rhythm, S1 normal heart sound present and S2 normal heart sound present RATE: regular rate RHYTHM: regular rhythm HEART SOUNDS: S1 normal heart sound present and S2 normal heart sound present GI: COMMON NORMALS: Normal to inspection, nondistended, normoactive bowel sounds present, Soft to palpation and non-tender PALPATION: Yes Soft to palpation Extremity: NARRATIVE EXTREMITY EXAM: Splint present to left lower extremity, upon removal there is evidence of swelling to the left ankle with tenderness to palpation extending proximally. No obvious fracture deformity or skin tenting. Distal pulses are palpable. Negative knee examination. Negative logroll, mild tenderness to palpation of the left anterolateral hip joint. No shortening or internal/external rotation noted at the left lower extremity. Mild tenderness to palpation to left proximal shoulder. Distal radial pulse palpable. All other extremities and joints palpated and nontender. Neuro: COMMON NORMALS: patient oriented x3, CN's II-XII intact bilaterally, moves all extremities, no focal motor deficits and no sensory deficits noted SENSORIUM/ORIENTATION: Yes alert Skin: COMMON NORMALS: no rashes or lesions noted GENERAL SKIN EXAM: no rashes or lesions noted Course Vital Signs: Vital signs: Vital Signs Temperature 97.9 F 11/18/24 11:46 Pulse Rate 63 11/18/24 11:46 Respiratory Rate 17 11/18/24 11:46 Blood Pressure 107/53 11/18/24 11:46 Pulse Oximetry 94 11/18/24 11:46 Oxygen Delivery Me thod Room Air 11/18/24 11:46 Oxygen Flow Rate 2 11/15/24 14:16 MDM - Extremity (Nontraumatic) Medical Decision Making This patient presented by ambulance for a fall a couple of hours prior to coming in. Reportedly was a mechanical fall where she injured her left lower extremity, also fell directly onto her left hip and left upper arm. Of note, she was reported to have been down for greater than an hour as after falling she was only able to drag herself inside to call the ambulance, unable to get up under her own power. Ambulance arrived and assisted her, she was given pain meds on the way to the ED and was essentially pain-free at time of exam. Splint was also applied. Removal of the splint here and exam showed swelling of the distal left ankle, no neurovascular deficits appreciated at this time and no obvious deformity. Her left hip was mildly tender to palpation, though she did note to me this was chronic. Very minimal tender palpation of the left upper extremity with no obvious deformity here either. Did not hit her head or lose consciousness. Lab work is pending at this time to include a CPK, her EKG was reviewed and unremarkable for any arrhythmia or acute STEMI. Also pending at this time her x-ray of her left lower extremity, left hip, and left upper extremity. Care of patient will be handed off to Dr. Lou, who was informed of patient's case and current findings. Lab Data 11/16/24 04:17 11/16/24 04:17 Radiology Impressions Hip/Pelvis X-Ray 11/15/24 00:05 IMPRESSION: No acute bony findings. Shoulder X-Ray 11/15/24 00:05 IMPRESSION: No acute bony findings. Ankle X-Ray 11/15/24 02:01 IMPRESSION: Interval changes as above. Ankle CT 11/15/24 02:34 IMPRESSION: 1. Acute minimally comminuted oblique fracture of the lateral malleolus. 2. Acute comminuted fracture of the medial malleolus and posterior malleolus. Head CT 11/15/24 05:02 IMPRESSION: No acute intracranial abnormality. Laboratory Results WBC 10.64 10^3/uL (3.29-11.43) 11/15/24 01:01 RBC 4.06 10^6/uL (3.85-5.65) 11/15/24 01:01 Hgb 12.40 g/dL (11.27-16.99) 11/15/24 01:01 Hct 37.2 % (36-47) 11/15/24 01:01 MCV 91.6 fl (85-98) 11/15/24 01:01 MCH 30.5 pg (27-33) 11/15/24 01:01 MCHC 33.3 g/dL (30-55) 11/15/24 01:01 RDW 12.7 % (12.1-15.1) 11/15/24 01:01 Plt Count 225 10^3/cmm (157-399) 11/15/24 01:01 MPV 11.0 fL (7.4-10.4) H 11/15/24 01:01 Neut % (Auto) 83.5 % 11/15/24 01:01 Lymph % (Auto) 9.7 % 11/15/24 01:01 [place] % (Auto) 5.9 % 11/15/24 01:01 Eos % (Auto) 0.2 % 11/15/24 01:01 Baso % (Auto) 0.4 % 11/15/24 01:01 Neut # (Auto) 8.89 10^3/uL (1.8-7.7) H 11/15/24 01:01 Lymph # (Auto) 1.0 10^3/uL (0.8-4.8) 11/15/24 01:01 [place] # (Auto) 0.6 10^3/uL (0.2-0.9) 11/15/24 01:01 Eos # (Auto) 0.0 10^3/uL (0.0-0.8) 11/15/24 01:01 Baso # (Auto) 0.0 10^3/uL (0.0-0.1) 11/15/24 01:01 Nucleated RBC % (auto) 0 % 11/15/24 01:01 Nucleated RBCs # 0.0 /100WBC 11/15/24 01:01 Sodium 130 mmol/L (136-145) L 11/15/24 01:01 Potassium 4.1 mmol/L (3.5-5.1) 11/15/24 01:01 Chloride 91 mmol/L (98-107) L 11/15/24 01:01 Carbon Dioxide 25 mmol/L (22-29) 11/15/24 01:01 Anion Gap 18.1 (5-19) 11/15/24 01:01 BUN 17 mg/dL (8-23) 11/15/24 01:01 Creatinine 1.3 mg/dL (0.5-0.9) H 11/15/24 01:01 GFR Calculation Not Reportable 11/15/24 01:01 Glucose 167 mg/dL (65-115) H 11/15/24 01:01 Estimat Average Glucose 123 11/15/24 01:01 Hemoglobin A1c 5.9 % (4.0-6.0) 11/15/24 01:01 Calculated Osmolality 275 mOsm/kg (285-295) L 11/15/24 01:01 Calcium 9.2 mg/dL (8.5-10.5) 11/15/24 01:01 Magnesium 1.6 mg/dL (1.7-2.3) L 11/15/24 01:01 Total Bilirubin 0.3 mg/dL (0.15-1.2) 11/15/24 01:01 AST 21 U/L (0-32) 11/15/24 01:01 ALT 14 U/L (0-33) 11/15/24 01:01 Alkaline Phosphatase 107 U/L (35-105) H 11/15/24 01:01 Creatine Kinase 161 U/L (26-192) 11/15/24 01:01 Creatine Kinase Cancelled 11/15/24 01:01 Total Protein 7.5 g/dL (6.6-8.7) 11/15/24 01:01 Albumin 4.3 g/dL (3.5-5.2) 11/15/24 01:01 Globulin 3.2 g/dL (1.3-4.6) 11/15/24 01:01 All radiology interpretation(s) finalized by discharge Discharge Plan Discharge Patient Disposition: Admitted As Inpatient Admit Provider: Gerry Hernandez Clinical Impression: Fracture of tibia and fibula Condition: Stable Coding Level of Care Code ED Shearer Screen Measurer And Trimmer for Chg Fwd Documented by User: Isaac Lou MD 11/15/24 03:55 HPI - Extremity Problem General: Chief complaint: Extremity Injury, Lower Stated complaint: FALL, LEFT ANKLE PAIN Time Seen by Provider: 11/14/24 23:37 Related Data Home Medications ?Medication ?Instructions ?Recorded ?Confirmed aspirin 81 mg tablet,delayed 81 mg PO DAILY 11/15/24 11/15/24 release (Robyn Low Dose Aspirin) Previous Rx's ?Medication ?Instructions ?Recorded levothyroxine 50 mcg tablet 50 mcg PO DAILY #90 tabs 06/19/24 omeprazole 40 mg capsule,delayed 40 mg PO DAILY #90 caps 07/23/24 release chlorthalidone 25 mg tablet 25 mg PO DAILY #90 tabs 07/27/24 losartan 100 mg tablet 100 mg PO DAILY #90 tabs 09/24/24 gabapentin 300 mg capsule 300 mg PO TID #270 caps 10/02/24 oxybutynin chloride 10 mg 10 mg PO DAILY #90 tabs 10/03/24 tablet,extended release 24 hr baclofen 10 mg tablet 10 mg PO DAILY #90 tabs 10/23/24 doxepin 25 mg capsule See Rx Instructions .Route 10/23/24 .COMPLEX #90 caps hydrocodone 5 mg-acetaminophen 325 1 tab PO BID PRN pain 30 days #60 11/14/24 mg tablet tabs Allergies Allergy/AdvReac Type Severity Reaction Status Date / Time No Known Allergies Allergy Verified 07/27/24 08:45 PFS ED PFS: Medical History Overactive bladder Paroxysmal SVT (supraventricular tachycardia) zio at [facility] 11/22 4 episodes of 4 beats SVT Osteoporosis 8.7.24 at [facility]; femoral neck -2.4--hip is decreased; repeat 1yr Osteoarthritis, generalized CKD stage 3a, GFR 45-59 ml/min Postcholecystectomy diarrhea GERD without esophagitis Adult onset hypothyroidism Encounter for chronic pain management Pain management contract signed 10.9.24 Controlled type 2 diabetes mellitus without complication, without long-term current use of insulin Chronic back pain greater than 3 months duration with R sided sciatica; has had several WHIT in past; las WHIT 1.31.24 R side Benign hypertension Hyperlipidemia Surgical History Mass of soft tissue of abdomen started 04/24--midaxillary line R lower rib cage area; surgically removed 06/24--benign Hx of cardiac cath 2016--normal Hx of colonoscopy 2007--diverticulosis History of anterior colporrhaphy cystocele repair fall 2010 and 09/12 Hx of laparoscopy 03/12--adhesions and extensive diverticulosis H/O: hysterectomy ovaries remaining; not cancer H/O vein stripping bilateral S/P cholecystectomy Family History Father Heart disease Rheumatoid arthritis Mother No problems noted. 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 Procedural Sedation ASA Class: II Preparation: fish hatchery specialist applied, pulse oximeter, supplemental O2 applied, suction/airway equipment at bedside and IV secured Ketamine: IV Ketamine dose (mg): 100 Patient Tolerated Procedure: well and no complications Complications: none Course Vital Signs: Vital signs: Vital Signs Temperature 97.9 F 11/18/24 11:46 Pulse Rate 63 11/18/24 11:46 Respiratory Rate 17 11/18/24 11:46 Blood Pressure 107/53 11/18/24 11:46 Pulse Oximetry 94 11/18/24 11:46 Oxygen Delivery Me thod Room Air 11/18/24 11:46 Oxygen Flow Rate 2 11/15/24 14:16 MDM - Extremity (Nontraumatic) Medical Decision Making This patient presented by ambulance for a fall a couple of hours prior to coming in. Reportedly was a mechanical fall where she injured her left lower extremity, also fell directly onto her left hip and left upper arm. Of note, she was reported to have been down for greater than an hour as after falling she was only able to drag herself inside to call the ambulance, unable to get up under her own power. Ambulance arrived and assisted her, she was given pain meds on the way to the ED and was essentially pain-free at time of exam. Splint was also applied. Removal of the splint here and exam showed swelling of the distal left ankle, no neurovascular deficits appreciated at this time and no obvious deformity. Her left hip was mildly tender to palpation, though she did note to me this was chronic. Very minimal tender palpation of the left upper extremity with no obvious deformity here either. Did not hit her head or lose consciousness. Lab work is pending at this time to include a CPK, her EKG was reviewed and unremarkable for any arrhythmia or acute STEMI. Also pending at this time her x-ray of her left lower extremity, left hip, and left upper extremity. Care of patient will be handed off to Dr. Lou, who was informed of patient's case and current findings. Patient signed out to me at shift change. X-ray shows fracture and dislocation of the left ankle involving both the distal fibula and tibia. Patient was sedated with ketamine and the fracture/dislocation was reduced and placed in a splint. I spoke with on-call podiatry who recommends admission to the hospitalist service with podiatry consultation for definitive surgical management later today. She will be kept n.p.o. CT of the ankle will be performed to help plan for surgery. Patient and family are agreeable to the plan. Lab Data 11/16/24 04:17 11/16/24 04:17 Radiology Impressions Hip/Pelvis X-Ray 11/15/24 00:05 IMPRESSION: No acute bony findings. Shoulder X-Ray 11/15/24 00:05 IMPRESSION: No acute bony findings. Ankle X-Ray 11/15/24 02:01 IMPRESSION: Interval changes as above. Ankle CT 11/15/24 02:34 IMPRESSION: 1. Acute minimally comminuted oblique fracture of the lateral malleolus. 2. Acute comminuted fracture of the medial malleolus and posterior malleolus. Head CT 11/15/24 05:02 IMPRESSION: No acute intracranial abnormality. Laboratory Results WBC 10.64 10^3/uL (3.29-11.43) 11/15/24 01:01 RBC 4.06 10^6/uL (3.85-5.65) 11/15/24 01:01 Hgb 12.40 g/dL (11.27-16.99) 11/15/24 01:01 Hct 37.2 % (36-47) 11/15/24 01:01 MCV 91.6 fl (85-98) 11/15/24 01:01 MCH 30.5 pg (27-33) 11/15/24 01:01 MCHC 33.3 g/dL (30-55) 11/15/24 01:01 RDW 12.7 % (12.1-15.1) 11/15/24 01:01 Plt Count 225 10^3/cmm (157-399) 11/15/24 01:01 MPV 11.0 fL (7.4-10.4) H 11/15/24 01:01 Neut % (Auto) 83.5 % 11/15/24 01:01 Lymph % (Auto) 9.7 % 11/15/24 01:01 [place] % (Auto) 5.9 % 11/15/24 01:01 Eos % (Auto) 0.2 % 11/15/24 01:01 Baso % (Auto) 0.4 % 11/15/24 01:01 Neut # (Auto) 8.89 10^3/uL (1.8-7.7) H 11/15/24 01:01 Lymph # (Auto) 1.0 10^3/uL (0.8-4.8) 11/15/24 01:01 [place] # (Auto) 0.6 10^3/uL (0.2-0.9) 11/15/24 01:01 Eos # (Auto) 0.0 10^3/uL (0.0-0.8) 11/15/24 01:01 Baso # (Auto) 0.0 10^3/uL (0.0-0.1) 11/15/24 01:01 Nucleated RBC % (auto) 0 % 11/15/24 01:01 Nucleated RBCs # 0.0 /100WBC 11/15/24 01:01 Sodium 130 mmol/L (136-145) L 11/15/24 01:01 Potassium 4.1 mmol/L (3.5-5.1) 11/15/24 01:01 Chloride 91 mmol/L (98-107) L 11/15/24 01:01 Carbon Dioxide 25 mmol/L (22-29) 11/15/24 01:01 Anion Gap 18.1 (5-19) 11/15/24 01:01 BUN 17 mg/dL (8-23) 11/15/24 01:01 Creatinine 1.3 mg/dL (0.5-0.9) H 11/15/24 01:01 GFR Calculation Not Reportable 11/15/24 01:01 Glucose 167 mg/dL (65-115) H 11/15/24 01:01 Estimat Average Glucose 123 11/15/24 01:01 Hemoglobin A1c 5.9 % (4.0-6.0) 11/15/24 01:01 Calculated Osmolality 275 mOsm/kg (285-295) L 11/15/24 01:01 Calcium 9.2 mg/dL (8.5-10.5) 11/15/24 01:01 Magnesium 1.6 mg/dL (1.7-2.3) L 11/15/24 01:01 Total Bilirubin 0.3 mg/dL (0.15-1.2) 11/15/24 01:01 AST 21 U/L (0-32) 11/15/24 01:01 ALT 14 U/L (0-33) 11/15/24 01:01 Alkaline Phosphatase 107 U/L (35-105) H 11/15/24 01:01 Creatine Kinase 161 U/L (26-192) 11/15/24 01:01 Creatine Kinase Cancelled 11/15/24 01:01 Total Protein 7.5 g/dL (6.6-8.7) 11/15/24 01:01 Albumin 4.3 g/dL (3.5-5.2) 11/15/24 01:01 Globulin 3.2 g/dL (1.3-4.6) 11/15/24 01:01 EKG Data EKG 1: Interpretation: Time?0011?sinus rhythm, rate of 61, no ST segment elevation or depression, no T wave inversions, intervals within normal limits. QTc = 395 Discharge Plan Discharge Patient Disposition: Admitted As Inpatient Admit Provider: Gerry Hernandez Clinical Impression: Fracture of tibia and fibula Condition: Stable Coding Level of Care Code ED Shearer Screen Measurer And Trimmer for Lexa Kothari
[2024-11-15 01:30] LABS: Basophils % 0.4 %; Eosinophils % 0.2 %; Hematocrit 37.2 % (36-47); Lymphocytes % 9.7 %; Mean Corpuscular HGB Conc 33.3 g/dL (30-55); Mean Corpuscular Hemoglobin 30.5 pg (27-33); Mean Corpuscular Volume 91.6 fl (85-98); Monocytes # 0.6 10^3/uL (0.2-0.9); Monocytes % 5.9 %; Neutrophils # 8.89 10^3/uL (1.8-7.7); Neutrophils % 83.5 %; Nucleated Red Blood Cells % 0 %; Platelet Count 225 10^3/cmm (157-399); Red Blood Count 4.06 10^6/uL (3.85-5.65); Red Cell Distribution Width 12.7 % (12.1-15.1); White Blood Count 10.64 10^3/uL (3.29-11.43)
[2024-11-15 01:37] LABS: Alanine Aminotransferase 14 U/L (0-33); Albumin Level 4.3 g/dL (3.5-5.2); Alkaline Phosphatase 107 U/L (35-105); Anion Gap 18.1 (5-19); Aspartate Amino Transferase 21 U/L (0-32); Blood Urea Nitrogen 17 mg/dL (8-23); Calcium 9.2 mg/dL (8.5-10.5); Carbon Dioxide 25 mmol/L (22-29); Chloride 91 mmol/L (98-107); Creatine Phosphokinase 161 U/L (26-192); Creatinine Clr Calc Pharmacy 27.0639; Globulin 3.2 g/dL (1.3-4.6); Glucose 167 mg/dL (65-115); Magnesium 1.6 mg/dL (1.7-2.3); Osmolality Calculated 275 mOsm/kg (285-295); Potassium 4.1 mmol/L (3.5-5.1); Sodium 130 mmol/L (136-145); Total Bilirubin 0.3 mg/dL (0.15-1.2); Total Protein 7.5 g/dL (6.6-8.7)
--- NOTE | 2024-11-15 02:01 | XRR_ITS ---
PROCEDURE INFORMATION: Exam: XR Left Ankle Exam date and time: 11/15/2024 2:03 AM Age: 89 years old Clinical indication: Injury or trauma; Fall; Blunt trauma; Ankle; Left; Injury details: Post reduction TECHNIQUE: Imaging protocol: Radiologic exam of the left ankle. Views: 1 or 2 views. COMPARISON: CR (LOW EXM, ) 11/15/2024 12:45 AM FINDINGS: Bones/joints: Interval placement of the ankle splint. Improved alignment of the medial malleolus fracture. Similar displaced distal fibula fracture. Posterior malleolus is not well-visualized on this exam. Soft tissues: Soft tissue swelling. XR/XR ankle LT 2V [id number] IMPRESSION: Interval changes as above.
[2024-11-15] MEDS: ketamine 100 mg/mL Inj 5 mL 74.4 MG IV (02:29)
--- NOTE | 2024-11-15 02:34 | CTR_ITS ---
PROCEDURE INFORMATION: Exam: CT Left Lower Extremity Without Contrast, Ankle Exam date and time: 11/15/2024 2:47 AM Age: 89 years old Clinical indication: Injury or trauma; Fall; Blunt trauma; Ankle; Left; Additional info: Fracture, surgery planning TECHNIQUE: Imaging protocol: CT of the left lower extremity without contrast was performed. Exam focused on the ankle. Radiation optimization: All CT scans at this facility use at least one of these dose optimization techniques: automated exposure control; mA and/or kV adjustment per patient size (includes targeted exams where dose is matched to clinical indication); or iterative reconstruction. COMPARISON: CR (LOW EXM, ) 11/15/2024 2:03 AM RADIATION DOSE METRICS: Total DLP (mGy-cm): 179.3 FINDINGS: Bones/joints: Acute minimally comminuted oblique fracture of the lateral malleolus. Acute comminuted fracture of the medial malleolus and posterior malleolus. The ankle mortise is grossly maintained. Soft tissues: Mild layering hemorrhage bilateral ankle soft tissues. No definite tendinous injury. CT/CT ankle LT wo con* [id number] IMPRESSION: 1. Acute minimally comminuted oblique fracture of the lateral malleolus. 2. Acute comminuted fracture of the medial malleolus and posterior malleolus.
[2024-11-15] MEDS: morphine 4 mg/mL SDV 1 mL IVP (03:04)
[2024-11-15 03:45] LABS: Glucose Point of Care 155 mg/dL (70-110)
[2024-11-15] MEDS: sodium chloride 0.9% 1,000 ML 75 ML IV ×2 (04:54→14:44)
[2024-11-15] MEDS: pantoprazole 40 mg SDV IVP (04:54)
--- NOTE | 2024-11-15 04:54 | PM.HP ---
Providers/Chief Complaint Admitting Physician: Gerry Hernandez MD Primary Care Provider: Le Ibrahim MD Chief Complaint: FALL, LEFT ANKLE PAIN History of Present Illness Annette Egan is a 89 year old female With a past medical history of paroxysmal SVT, CKD stage III, type 2 diabetes, hypertension hyperlipidemia who presents [facility] for a fall. Patient tells me that last night, she was outside, the ground is uneven, unfortunately she twisted her ankle on the uneven ground, and fell to the ground, fell twisting her left ankle, fell on the left hip, left shoulder, no head trauma, no loss of consciousness, but was unable to get up off the ground, EMS was called, in the emergency room, she was found to have fracture dislocation of left ankle involving distal fibula and tibia without, patient was sedated with ketamine and had fracture/dislocation reduced, placed in a splint, orthopedic service has been consulted, currently patient is alert oriented x 3, following all commands, complaining of left ankle pain Review of Systems Const: Denies: fever(s) Card: Denies: chest pain Resp: Denies: dyspnea GI: Denies: abdominal pain Medications/Allergies Home Medications ?Medication ?Instructions ?Recorded ?Confirmed ?Last Taken ?Type lovastatin 10 mg tablet 10 mg PO DAILY 04/11/20 07/27/24 06/07/24 History sucralfate 1 gram tablet 1 gm PO QID 04/11/20 07/27/24 06/07/24 History levothyroxine 50 mcg tablet 50 mcg PO DAILY #90 tabs 06/19/24 07/27/24 Unknown Rx cephalexin 500 mg capsule 500 mg PO TID 5 days #15 caps 06/22/24 07/27/24 Unknown Rx omeprazole 40 mg capsule,delayed 40 mg PO DAILY #90 caps 07/23/24 07/27/24 Unknown Rx release chlorthalidone 25 mg tablet 25 mg PO DAILY #90 tabs 07/27/24 07/27/24 Unknown Rx fluconazole 100 mg tablet 100 mg PO DAILY #10 tabs 07/27/24 07/27/24 Unknown Rx losartan 100 mg tablet 100 mg PO DAILY #90 tabs 09/24/24 Unknown Rx gabapentin 300 mg capsule 300 mg PO TID #270 caps 10/02/24 Unknown Rx oxybutynin chloride 10 mg 10 mg PO DAILY #90 tabs 10/03/24 Unknown Rx tablet,extended release 24 hr baclofen 10 mg tablet 10 mg PO DAILY #90 tabs 10/23/24 Unknown Rx doxepin 25 mg capsule See Rx Instructions .Route 10/23/24 Unknown Rx .COMPLEX #90 caps hydrocodone 5 mg-acetaminophen 325 1 tab PO BID PRN pain 30 days #60 11/14/24 Unknown Rx mg tablet tabs Allergies Allergy/AdvReac Type Severity Reaction Status Date / Time No Known Allergies Allergy Verified 07/27/24 08:45 PFSH Acute PFSH: Medical History Overactive bladder Paroxysmal SVT (supraventricular tachycardia) zio at [facility] 11/22 4 episodes of 4 beats SVT Osteoporosis 8.7.24 at [facility]; femoral neck -2.4--hip is decreased; repeat 1yr Osteoarthritis, generalized CKD stage 3a, GFR 45-59 ml/min Postcholecystectomy diarrhea GERD without esophagitis Adult onset hypothyroidism Encounter for chronic pain management Pain management contract signed 10.9.24 Controlled type 2 diabetes mellitus without complication, without long-term current use of insulin Chronic back pain greater than 3 months duration with R sided sciatica; has had several HWIT in past; las WHIT 1.31.24 R side Benign hypertension Hyperlipidemia Surgical History Mass of soft tissue of abdomen started 04/24--midaxillary line R lower rib cage area; surgically removed 06/24--benign Hx of cardiac cath 2016--normal Hx of colonoscopy 2007--diverticulosis History of anterior colporrhaphy cystocele repair fall 2010 and 09/12 Hx of laparoscopy 03/12--adhesions and extensive diverticulosis H/O: hysterectomy ovaries remaining; not cancer H/O vein stripping bilateral S/P cholecystectomy Family History Father Heart disease Rheumatoid arthritis Mother No problems noted. 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 Current gender identity: Female Female Reproductive History: Spontaneous abortions: No Vitals/I&O/Wt Last Vital Signs Temp 98 F 11/14/24 22:45 Pulse 71 11/15/24 02:48 Resp 15 11/15/24 03:04 BP 180/91 11/15/24 02:48 Pulse Ox 97 11/15/24 03:04 O2 Del Method Room Air, Nasal Cannula 11/15/24 02:48 Weight last 48 hrs Weight 74.389 kg Physical Exam Const: COMMON NORMALS: no acute distress and patient oriented x3 Resp: COMMON NORMALS: normal respiratory effort, No retractions, No use of accessory muscles and clear to auscultation bilaterally AUSCULTATION: clear to auscultation bilaterally Cardio: COMMON NORMALS: no JVD, regular rate, regular rhythm, S1 normal heart sound present and S2 normal heart sound present RATE: regular rate RHYTHM: regular rhythm HEART SOUNDS: S1 normal heart sound present and S2 normal heart sound present GI: COMMON NORMALS: Normal to inspection, nondistended, normoactive bowel sounds present, Soft to palpation and non-tender Extremity: COMMON NORMALS: no pedal edema NARRATIVE EXTREMITY EXAM: Left ankle in the splint Neuro: COMMON NORMALS: patient oriented x3, CN's II-XII intact bilaterally and moves all extremities Psych: COMMON NORMALS: mental status grossly normal Data 11/15/24 01:01 11/15/24 01:01 A&P Assessment and plan (1) Ankle fracture: (2) Benign hypertension: (3) Paroxysmal SVT (supraventricular tachycardia): (4) Hyperlipidemia: Qualifiers: Hyperlipidemia type: mixed hyperlipidemia Qualified Code(s): E78.2 - Mixed hyperlipidemia (5) Controlled type 2 diabetes mellitus without complication, without long-term current use of insulin: (6) Adult onset hypothyroidism: (7) Osteoporosis: Plan Ankle fracture CT/CT ankle LT wo con* [id number] IMPRESSION: 1. Acute minimally comminuted oblique fracture of the lateral malleolus. 2. Acute comminuted fracture of the medial malleolus and posterior malleolus. PLAN: -NPO -morphine for pain control -will monitor closely -podiatry consulted -urinalysis -Pseudohyponatremia, second hyperglycemia, monitor - Type 2 diabetes mellitus, low-dose sliding scale - FELSIA, IV fluids - Full code - Lovenox for DVT prophylaxis PDMP PDMP Reviewed: Not Reviewed Attestations Medical Necessity Statement*: Patient requires hospitalization, inpatient, greater than 2 midnights, for ankle fracture Diagnoses Ankle fracture S82.899A Benign hypertension I10 Paroxysmal SVT (supraventricular tachycardia) I47.10 Mixed hyperlipidemia E78.2 Hyperlipidemia type: mixed hyperlipidemia Controlled type 2 diabetes mellitus without complication, without long-term current use of insulin E11.9 Adult onset hypothyroidism E03.8 Osteoporosis M81.0
--- NOTE | 2024-11-15 05:02 | CTR_ITS ---
PROCEDURE INFORMATION: Exam: CT Head Without Contrast Exam date and time: 11/15/2024 5:54 AM Age: 89 years old Clinical indication: Injury or trauma; Fall; Blunt trauma (contusions or hematomas) TECHNIQUE: Imaging protocol: Computed tomography of the head without contrast. Radiation optimization: All CT scans at this facility use at least one of these dose optimization techniques: automated exposure control; mA and/or kV adjustment per patient size (includes targeted exams where dose is matched to clinical indication); or iterative reconstruction. COMPARISON: CR XR cervical spine 3V* [id number] 08/17/2021 1:03 PM RADIATION DOSE METRICS: Total DLP (mGy-cm): 1175.88 FINDINGS: Brain: No hemorrhage. Periventricular white matter lucency represents atherosclerotic encephalopathic changes. No mass effect. Cerebral ventricles: No ventriculomegaly. Mild ventricular prominence proportionate to the degree of atrophy observed. Paranasal sinuses: Visualized sinuses are unremarkable. No fluid levels. Mastoid air cells: Visualized mastoid air cells are well aerated. Bones: Unremarkable. No acute fracture. Soft tissues: Unremarkable. CT/CT head wo con* [id number] IMPRESSION: No acute intracranial abnormality.
[2024-11-15 05:16] LABS: Bilirubin Urine Negative (Negative); Blood Urine Negative (Negative); Glucose Urine UA Negative (Normal); Ketones Urine Trace (Negative); Leukocyte Esterase Urine 1+ (Negative); Nitrate Urine Positive (Negative); Protein Urine Negative (Negative); Specific Gravity, Urine 1.025 (1.005-1.030); Urine Appearance Clear (CLEAR); Urine Color Yellow (Yellow); Urobilinogen Urine 0.2 mg/dL (Negative); pH Urine 5.5 (5-7)
[2024-11-15 05:21] LABS: Add Urine Microscopic? YES; Bacteria Urine 4+ /hpf; Hyaline Casts Urine 2.87 /lpf; RBC Urine 0-2 /hpf (0-2); Squamous Epithelial Cell Urine 0-5 /hpf (0-5); WBC Urine 51-100 /hpf (0-5)
[2024-11-15 05:31] LABS: Add Urine Culture? Yes
[2024-11-15 05:44] LABS: Estmated Average Glucose 123; Hemoglobin A1C 5.9 % (4.0-6.0)
--- NOTE | 2024-11-15 07:43 | PM.CONSULT ---
Providers/Reason For Consult Consulting Physician/Specialty*: Alley Sabillon.P.M./podiatry Reason for Consult*: Left trimalleolar ankle fracture Attending Physician: Gerry Hernandez MD Primary Care Provider: Le Ibrahim MD History of Present Illness History of Present Illness Annette Egan is a 89 year old female who sustained a fall yesterday evening (11/14/2024) resulting in trimalleolar ankle fracture. She states that this happened at about 1900. She subsequently had to crawl her way back to the house after she tried to stand on it and her ankle gave way. She states that it took her an hour to return back to the house. She lives with her 91-year-old who also has his own medical issues. The patient lives in [facility]. She was brought to the emergency department by son and [id number] who live next-door to them. Patient states that they also have a son that lives on their property. In the emergency department patient underwent reduction of left trimalleolar ankle fracture. Podiatry was consulted to evaluate and provide further recommendations. Patient has a history of CKD, type 2 diabetes, controlled. Review of Systems General: Reports: 10 or more systems reviewed and unremarkable except in HPI and below Const: Denies: fever(s), chills or fatigue Eyes: Denies: change in vision ENMT: Denies: sinus pain Card: Denies: chest pain, palpitations or lightheadedness Resp: Denies: dyspnea GI: Denies: abdominal pain, nausea or vomiting Musc: Reports: extremity pain, extremity swelling and limited range of motion; Denies: neck pain or back pain Skin/Breast: Reports: skin swelling Neuro: Denies: numbness in extremities Medications/Allergies Home Medications ?Medication ?Instructions ?Recorded ?Confirmed ?Last Taken ?Type lovastatin 10 mg tablet 10 mg PO DAILY 04/11/20 07/27/24 06/07/24 History sucralfate 1 gram tablet 1 gm PO QID 04/11/20 07/27/24 06/07/24 History levothyroxine 50 mcg tablet 50 mcg PO DAILY #90 tabs 06/19/24 07/27/24 Unknown Rx cephalexin 500 mg capsule 500 mg PO TID 5 days #15 caps 06/22/24 07/27/24 Unknown Rx omeprazole 40 mg capsule,delayed 40 mg PO DAILY #90 caps 07/23/24 07/27/24 Unknown Rx release chlorthalidone 25 mg tablet 25 mg PO DAILY #90 tabs 07/27/24 07/27/24 Unknown Rx fluconazole 100 mg tablet 100 mg PO DAILY #10 tabs 07/27/24 07/27/24 Unknown Rx losartan 100 mg tablet 100 mg PO DAILY #90 tabs 09/24/24 Unknown Rx gabapentin 300 mg capsule 300 mg PO TID #270 caps 10/02/24 Unknown Rx oxybutynin chloride 10 mg 10 mg PO DAILY #90 tabs 10/03/24 Unknown Rx tablet,extended release 24 hr baclofen 10 mg tablet 10 mg PO DAILY #90 tabs 10/23/24 Unknown Rx doxepin 25 mg capsule See Rx Instructions .Route 10/23/24 Unknown Rx .COMPLEX #90 caps hydrocodone 5 mg-acetaminophen 325 1 tab PO BID PRN pain 30 days #60 11/14/24 Unknown Rx mg tablet tabs Allergies Allergy/AdvReac Type Severity Reaction Status Date / Time No Known Allergies Allergy Verified 07/27/24 08:45 Current Medications Generic Name Dose Route Start Last Admin Trade Name Freq PRN Reason Stop Dose Admin Sodium Chloride 1,000 mls @ 75 mls/hr 11/15/24 04:15 11/15/24 04:54 Sodium Chloride 0.9% IV 75 mls/hr .[id number] GLENROY Administration Pantoprazole Sodium 40 mg 11/15/24 04:15 11/15/24 04:54 Pantoprazole 40 Mg Sdv IVP 40 mg Q24H GLENROY Administration PFSH Acute PFSH: Medical History Overactive bladder Paroxysmal SVT (supraventricular tachycardia) zio at [facility] 11/22 4 episodes of 4 beats SVT Osteoporosis 8.7.24 at [facility]; femoral neck -2.4--hip is decreased; repeat 1yr Osteoarthritis, generalized CKD stage 3a, GFR 45-59 ml/min Postcholecystectomy diarrhea GERD without esophagitis Adult onset hypothyroidism Encounter for chronic pain management Pain management contract signed 10.9.24 Controlled type 2 diabetes mellitus without complication, without long-term current use of insulin Chronic back pain greater than 3 months duration with R sided sciatica; has had several WHIT in past; las WHIT 1.31.24 R side Benign hypertension Hyperlipidemia Surgical History Mass of soft tissue of abdomen started 04/24--midaxillary line R lower rib cage area; surgically removed 06/24--benign Hx of cardiac cath 2016--normal Hx of colonoscopy 2007--diverticulosis History of anterior colporrhaphy cystocele repair fall 2010 and 09/12 Hx of laparoscopy 03/12--adhesions and extensive diverticulosis H/O: hysterectomy ovaries remaining; not cancer H/O vein stripping bilateral S/P cholecystectomy Family History Father Heart disease Rheumatoid arthritis Mother No problems noted. 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 No interdigital maceration noted. MUSCULOSKELETAL: Full musculoskeletal exam to left lower extremity deferred secondary to posttraumatic state NEUROLOGICAL: Neurological sensation to the affected foot and ankle is present through L4-S1 dermatomes with no hyper/hypoesthesias, negative Tinel or Valleix's sign IMAGING: Three-view x-rays of left ankle show displaced trimalleolar ankle fracture. CT scan shows comminuted displaced trimalleolar ankle fracture Data 11/15/24 01:01 11/15/24 01:01 A&P Assessment and plan (1) Trimalleolar fracture of left ankle: (2) Type 2 diabetes mellitus: Plan - Left trimalleolar ankle fracture - Inherent stability of fracture pattern necessitates open reduction internal fixation - Recommended admission for repair due to patient comorbidities and social status - Patient to be scheduled for open reduction internal fixation today 11/15/24 at noon - Remain n.p.o. --I reviewed at length with the patient, the risks, potential complications, benefits, alternatives, expectations, and typical outcomes associated with the surgery. The risks and potential complications were explained in detail, including but not limited to infection, wound dehiscence or soft tissue complications, bleeding and hematoma, chronic edema, neuritis or nerve damage producing numbness or chronic pain, CRPS, failure to relieve pain or worsening pain, thick / painful / unsightly scar, limited motion / stiffness, malposition, delayed union, malunion, or nonunion, fracture, reaction to implants, anesthetic complications, venous thromboembolism, and deformity recurrence. The patient seemed to understand the nature of the proposed care and required convalescence. They asked appropriate questions, answered to their satisfaction. They are aware no guarantees can be made as to a satisfactory outcome and they understand there may be other possible unforeseen complications or outcomes not listed here that will be treated accordingly if they arise. There were no written or implied guarantees given to the patient. They gave informed consent to proceed. - Patient will return to the floor after surgery PDMP PDMP Reviewed: Not Reviewed Coding Level of Care Code Acute Code for [facility] Diagnoses Trimalleolar fracture of left ankle S82.852A Type 2 diabetes mellitus E11.9
[2024-11-15 08:34] LABS: Glucose Point of Care 122 mg/dL (70-110)
[2024-11-15] MEDS: acetaminophen 325 mg Tablet 650 MG PO ×2 (11:38→19:54)
[2024-11-15 11:47] LABS: Glucose Point of Care 110 mg/dL (70-110)
--- NOTE | 2024-11-15 11:50 | W.PM.OPSUD ---
Surgery/Procedure H&P Update DATE OF PROCEDURE: November 15, 2024 DATE H&P PERFORMED: 11/15/24 H&P UPDATE INFORMATION: I have reviewed H&P completed within last 30 days, I have examined patient prior to procedure, No changes to prior documentation, H&P is in [facility] EMR on date indicated and Risks and benefits of the procedure reviewed PLANNED PROCEDURE: Operation Date: 11/15/24 12:15 Proposed Procedures p ORIF Ankle ORIF Trimalleolar Fracture(Left) - Harry Arriaza DPM
[2024-11-15] MEDS: HYDROmorphone 1 mg/mL INJ 1ml 0.5 MG IVP (11:52)
--- NOTE | 2024-11-15 12:04 | ANES.PREANE2 ---
Pre-Anesthetic Assessment Height/Weight: Height 1.55 m Weight 74.389 kg Temp Pulse Resp BP Pulse Ox O2 Del Method 98.0 F 78 18 137/68 97 Room Air 11/15/24 11:27 11/15/24 11:27 11/15/24 11:52 11/15/24 11:27 11/15/24 11:52 11/15/24 11:27 Operation Date: 11/15/24 12:15 Proposed Procedures p ORIF Ankle ORIF Trimalleolar Fracture(Left) - Harry Arriaza DPM Familial anesthetic complications: none Was Beta Floyd taken within 24 hours: N/A Was Clonidine taken within 24 hours: N/A Last intake: Intake Last Liquid Date 11/14/24 Last Liquid Time 18:00 Last Solid Date 11/14/24 Last Solid Time 18:00 Social No alcohol and No tobacco Exam alert, oriented x 3, clear to auscultation bilaterally and regular rate & rhythm Airway Submandibular: within normal limits Cervical ROM: within normal limits Mallampati: Class II Dentition: false CV/HEM Anemia, Arrythmia and Hypertension Chronic Renal Insufficiency GI Gastroesophageal Reflux Disease Metabolic Diabetes Mellitus and Thyroid Disease [facility] [place] [place]/[facility] Lower Back Pain and Osteoarthritis/DJD Anesthetic Plan ASA status: 3 Anesthesia: General and Regional (specify below) (Left pop blk) Medications/Allergies Home Medications ?Medication ?Instructions ?Recorded ?Confirmed ?Last Taken ?Type levothyroxine 50 mcg tablet 50 mcg PO DAILY #90 tabs 06/19/24 11/15/24 11/14/24 Rx omeprazole 40 mg capsule,delayed 40 mg PO DAILY #90 caps 07/23/24 11/15/24 11/14/24 Rx release chlorthalidone 25 mg tablet 25 mg PO DAILY #90 tabs 07/27/24 11/15/24 Unknown Rx losartan 100 mg tablet 100 mg PO DAILY #90 tabs 09/24/24 11/15/24 11/14/24 Rx gabapentin 300 mg capsule 300 mg PO TID #270 caps 10/02/24 11/15/24 11/14/24 Rx oxybutynin chloride 10 mg 10 mg PO DAILY #90 tabs 10/03/24 11/15/24 11/14/24 Rx tablet,extended release 24 hr baclofen 10 mg tablet 10 mg PO DAILY #90 tabs 10/23/24 11/15/2411/14/25 Rx doxepin 25 mg capsule See Rx Instructions .Route 10/23/24 11/15/24 11/14/24 Rx .COMPLEX #90 caps hydrocodone 5 mg-acetaminophen 325 1 tab PO BID PRN pain 30 days #60 11/14/24 11/15/24 11/14/24 Rx mg tablet tabs aspirin 81 mg tablet,delayed 81 mg PO DAILY 11/15/24 11/15/24 11/14/24 History release (Robyn Low Dose Aspirin) Allergies Allergy/AdvReac Type Severity Reaction Status Date / Time No Known Allergies Allergy Verified 07/27/24 08:45 Current Medications Generic Name Dose Route Start Last Admin Trade Name Freq PRN Reason Stop Dose Admin Acetaminophen 650 mg 11/15/24 04:11 11/15/24 11:38 Acetaminophen 325 Mg Tablet PO 650 mg Q6H PRN Administration Mild/Mod Pain Or Temp >/= 101 Hydromorphone HCl 0.5 mg 11/15/24 11:26 11/15/24 11:52 Hydromorphone 1 Mg/Ml Inj 1ml IVP 0.25 mg ONCE PRN Administration For preop pain/anxiety Sodium Chloride 1,000 mls @ 75 mls/hr 11/15/24 04:15 11/15/24 04:54 Sodium Chloride 0.9% IV 75 mls/hr .[id number] GLENROY Administration Insulin Human Lispro 0 unit 11/15/24 08:00 11/15/24 08:35 Insulin Lispro 100 Unit/1 Ml SUBCUT Not Given TIDWM GLENROY Protocol Pantoprazole Sodium 40 mg 11/15/24 04:15 11/15/24 04:54 Pantoprazole 40 Mg Sdv IVP 40 mg Q24H GLENROY Administration PFSH Anesthesia Medical History Overactive bladder Paroxysmal SVT (supraventricular tachycardia) zio at [facility] 11/22 4 episodes of 4 beats SVT Osteoporosis 8.7.24 at [facility]; femoral neck -2.4--hip is decreased; repeat 1yr Osteoarthritis, generalized CKD stage 3a, GFR 45-59 ml/min Postcholecystectomy diarrhea GERD without esophagitis Adult onset hypothyroidism Encounter for chronic pain management Pain management contract signed 10.9.24 Controlled type 2 diabetes mellitus without complication, without long-term current use of insulin Chronic back pain greater than 3 months duration with R sided sciatica; has had several WHIT in past; las WHIT 1.31.24 R side Benign hypertension Hyperlipidemia Surgical History Mass of soft tissue of abdomen started 04/24--midaxillary line R lower rib cage area; surgically removed 06/24--benign Hx of cardiac cath 2016--normal Hx of colonoscopy 2007--diverticulosis History of anterior colporrhaphy cystocele repair fall 2010 and 09/12 Hx of laparoscopy 03/12--adhesions and extensive diverticulosis H/O: hysterectomy ovaries remaining; not cancer H/O vein stripping bilateral S/P cholecystectomy Family History Father Heart disease Rheumatoid arthritis Mother No problems noted. 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 Current gender identity: Female Female Reproductive History Spontaneous abortions: No Data Anesthesia 11/15/24 01:01 11/15/24 01:01 Short CBC 11/15/24 Range/Units 01:01 WBC 10.64 (3.29-11.43) 10^3/uL Hgb 12.40 (11.27-16.99) g/dL Hct 37.2 (36-47) % MCV 91.6 (85-98) fl Plt Count 225 (157-399) 10^3/cmm Neut % (Auto) 83.5 % Neut # (Auto) 8.89 H (1.8-7.7) 10^3/uL BMP 11/15/24 01:01 Sodium 130 L Potassium 4.1 Chloride 91 L Carbon Dioxide 25 BUN 17 Creatinine 1.3 H Glucose 167 H Calcium 9.2 Cardiac Enzymes 11/15/24 11/15/24 Range/Units 01:01 01:01 Creatine Kinase 161 Cancelled (26-192) U/L Liver Function 11/15/24 Range/Units 01:01 Total Bilirubin 0.3 (0.15-1.2) mg/dL AST 21 (0-32) U/L ALT 14 (0-33) U/L Alkaline Phosphatase 107 H (35-105) U/L Albumin 4.3 (3.5-5.2) g/dL Urine 11/15/24 Range/Units 05:00 Urine Color Yellow (Yellow) Urine Appearance Clear (CLEAR) Urine pH 5.5 (5-7) Ur Specific [place] 1.025 (1.005-1.030) Urine Protein Negative (Negative) Urine Glucose (UA) Negative (Normal) Urine Ketones Trace (Negative) Urine Nitrate Positive A (Negative) Urine Bilirubin Negative (Negative) Ur Leukocyte Esterase 1+ A (Negative) Urine RBC 0-2 (0-2) /hpf Urine WBC 51-100 H (0-5) /hpf Cardiac Studies: No Data to Display
[2024-11-15] MEDS: ceFAZolin 2,000 mg SDV 2000 MG IVP (12:10)
--- NOTE | 2024-11-15 12:47 | ANES.PROC ---
Anesthesia Procedures Procedure/Date: 11/15/24 Nerve Block ^: Nerve Block 1: Main Anesthesia: general anesthesia Time Out Performed: Yes Consent: requested by attending/covering physician and patient agrees to proceed Nerve block location: adductor canal (left) Anesthesia monitors applied: pulse oximetry, EKG, BP cuff and oxygen Nerve block position: supine Anesthetic Used: ropivicaine 0.5% Amount of anesthesia used (mL): 10 Ultrasound used to: recognize landmarks Nerve Stimulator Used?: No Interscalene/Femoral BLK: 4 stimuplex 21 g needle used for position and inplane approach Injection: neg aspiration of heme Patient Tolerated Procedure: well Complications: none
--- NOTE | 2024-11-15 12:48 | ANES.PROC ---
Anesthesia Procedures Procedure/Date: 11/15/24 Nerve Block ^: Nerve Block 1: Main Anesthesia: general anesthesia Time Out Performed: Yes Consent: requested by attending/covering physician and patient agrees to proceed Nerve block location: popliteal (left) Anesthesia monitors applied: pulse oximetry, EKG, BP cuff and oxygen Nerve block position: supine Anesthetic Used: ropivicaine 0.5% Amount of anesthesia used (mL): 20 Ultrasound used to: recognize landmarks Nerve Stimulator Used?: No Interscalene/Femoral BLK: 4 stimuplex 21 g needle used for position and inplane approach Injection: neg aspiration of heme Patient Tolerated Procedure: well Complications: none
--- NOTE | 2024-11-15 13:49 | P.BOP_ITS ---
Date of procedure: 11/15/24 Surgeon name: Dr. Harry Arriaza DPM Machine Operator Cane Cutter(s) name(s): Shae Procedure(s) performed: ORIF left trimalleolar ankle fracture Description of findings: left trimalleolar ankle fracture Estimated blood loss: 10cc Tourniquet time: 63 minutes Specimen(s) removed: none Post-operative diagnosis: left trimalleolar ankle fracture
--- NOTE | 2024-11-15 14:33 | P.MISC_ITS ---
Miscellaneous Note Purpose of Documentation: Overnight labs and H&P reviewed. Patient is status post ORIF of left trima lleolar ankle fracture with Dr. Arriaza today. Currently pain is well controlled
--- NOTE | 2024-11-15 14:33 | PM.MISC ---
Miscellaneous Note Purpose of Documentation: Overnight labs and H&P reviewed. Patient is status post ORIF of left trimalleolar ankle fracture with Dr. Arriaza today. Currently pain is well controlled
--- NOTE | 2024-11-15 14:34 | ANE.PACU2 ---
Inpatient post-anesthesia follow up: Airway intact: Yes Vital signs: Temperature 97.6 F Pulse Rate 60 Respiratory Rate 16 Blood Pressure 137/64 Pulse Oximetry 98 Oxygen Delivery Me thod Nasal Cannula Oxygen Flow Rate 2 Fraction of Inspir ed Oxygen Hydration adequate: Yes Nausea and vomiting: No Pain level: 1 Mental status: Baseline
[2024-11-15] MEDS: enoxaparin 40 mg/0.4 mL Syringe SUBCUT (17:13)
[2024-11-15 17:15] LABS: Glucose Point of Care 155 mg/dL (70-110)
[2024-11-15] MEDS: insulin lispro 100 unit/1 mL SUBCUT (17:16)
[2024-11-15] MEDS: gabapentin 300 mg Capsule PO (20:16)
[2024-11-15] MEDS: doxepin 25 mg Capsule PO (20:16)
[2024-11-15 20:53] LABS: Glucose Point of Care 230 mg/dL (70-110)
--- NOTE | 2024-11-15 21:44 | P.OP_ITS ---
Operative Report Date of procedure: November 15, 2024 Surgeon: Harry Arriaza DPM Procedure: Date of procedure: 11/15/2024 Pre-op diagnosis: Left trimalleolar ankle fracture Post-op diagnosis: Same Post-op findings: Left trimalleolar ankle fracture. Chapis fragment. After repair stable syndesmosis Procedure done: Open reduction internal fixation left trimalleolar ankle fracture CPT 34141 Implants: Anatomic fibular plate with 2.7 and 3.5 locking screws as well as two 3.5 headed short threaded screws from [place] 28 Specimens removed: None Surgeon: Dr. Harry Arriaza DPM Electrician Helper Automotive: Shae VIRAMONTES Estimated blood loss: 15 cc Tourniquet time: 63 minutes Complications: None Patient is a pleasant 89-year-old female who has sustained a left trimalleolar ankle fracture. Due to the inherent instability of the fracture pattern this ne cessitates open reduction internal fixation. Preoperative imaging confirmed trimalleolar ankle fracture of left ankle. Details of the surgery were discussed with patient and patient's family. All patient questions answered patient satisfaction. No guarantees were given or implied. The patient has been NPO since midnight. The history has been reviewed and the history and physical is current. The signed consent was confirmed and placed in the patient chart. Patient imaging has been reviewed and is consistent with the diagnosis. Under mild sedation, the patient was brought into the operating room and placed on the table in the supine position. IV antibiotics were given for preoperative prophylaxis. General sedation was then performed by the anesthesiateam. A popliteal/adductor canal block was performed by the anesthesia department. A pneumatic tourniquet was then placed about the left thigh. The operative extremity was then prepped and draped in the usual fashion. After prep, the tourniquet was inflated to 325 mmHg and the following procedure was then performed. Attention was directed to the lateral aspect of the left ankle where a 6.5 cm was made using a #15 blade overlying the lateral malleolus. Dissection was carried down through subcutaneous the superficial fascia to the level of the fibular periosteum which was incised to expose the underlying fracture and hematoma formation. The fracture site was cleared from hematoma formation and a reduction clamp was used to reduce the fibular fragment. There was also noted to be an anterior Chapis fragment to the fibula from an AITFL avulsion. A 3.5 interfrag screw was placed across the Mccurdy B fracture to stabilize the fibula. Next an anatomic fibular plate was fashioned to the lateral aspect of the fibula with 2.7 locking screws distally and 3.5 locking screws proximally. The Chapis fragment was then fixated using a single 3.5 headed short threaded screw. Attention was then directed to the medial aspect of the ankle a #15 blade was used to make a 2 cm incision overlying the medial malleolus. 2 guidewires were then driven through the medial malleolus across the fracture site of the medial malleolus before being drilled in preparation for two 3.5 headed short threaded screws. These were placed over the wires and across fracture site. Good positioning of orthopedic hardware was visualized clini maryanne as well as on C-arm imaging. Under direct visualization and fluoroscopic visualization of the ankle was stressed specifically the syndesmosis and the syndesmosis was noted to be intact. No need for syndesmotic repair based on intraoperative findings the site was irrigated with copious amounts of sterile saline before attention was directed to closure. Deep tissue was closed with 2- 0 Vicryl followed by subcuticular closure with 4-0 Vicryl and skin closure with 3-0 nylon in horizontal mattress fashion. The tourniquet was let down and good hyperemic response was noted to all digits of the left foot. The incision was dressed with Xeroform, 4 x 4 gauze, Kerlix, Bharat. Patient was placed in a cam boot. The patient tolerated the procedure and anesthesia well and without complication. The patient was transported from the operating room to the recovery room with vital signs stable and vascular status intact to all digits of the left foot. Thepatient was instructed to remain strict nonweightbearing to the operative extremity, to keep surgical dressing clean, dry and intact. The patient will be transferred back to the floor once anesthesia criteria is met. I will continue to round on and follow the patient in the inpatientsetting and provide recommendations to stabilize the patient for discharge.
[2024-11-15] MEDS: lidocaine 2% viscous 15 ML, aluminum-mag hydrox-simethicon 30 ML, sucralfate oral liq 1 GM PO (22:02)
[2024-11-16] VITALS (8 sets, daily range): BP systolic 98–165; BP diastolic 53–84; PULSE 45–64; RESP 13–18; TEMP 36.5–36.9; O2SAT 93–99; BMI 32.5
[2024-11-16] MEDS: acetaminophen 325 mg Tablet 650 MG PO ×2 (01:00→08:32)
[2024-11-16] MEDS: pantoprazole 40 mg SDV IVP (04:12)
[2024-11-16 05:12] LABS: Basophils % 0.1 %; Eosinophils % 0.3 %; Hematocrit 32.2 % (36-47); Lymphocytes # 1.1 10^3/uL (0.8-4.8); Lymphocytes % 16.6 %; Mean Corpuscular HGB Conc 32.9 g/dL (30-55); Mean Corpuscular Hemoglobin 31.2 pg (27-33); Mean Corpuscular Volume 94.7 fl (85-98); Mean Platelet Volume 11.6 fL (7.4-10.4); Monocytes # 0.5 10^3/uL (0.2-0.9); Monocytes % 7.9 %; Neutrophils # 5.03 10^3/uL (1.8-7.7); Neutrophils % 74.8 %; Nucleated Red Blood Cells % 0 %; Platelet Count 199 10^3/cmm (157-399); Red Cell Distribution Width 12.8 % (12.1-15.1); White Blood Count 6.73 10^3/uL (3.29-11.43)
[2024-11-16 05:30] LABS: Alanine Aminotransferase 9 U/L (0-33); Albumin Level 3.7 g/dL (3.5-5.2); Alkaline Phosphatase 77 U/L (35-105); Anion Gap 15.4 (5-19); Aspartate Amino Transferase 16 U/L (0-32); Blood Urea Nitrogen 16 mg/dL (8-23); Calcium 8.5 mg/dL (8.5-10.5); Carbon Dioxide 25 mmol/L (22-29); Chloride 97 mmol/L (98-107); Creatinine Clr Calc Pharmacy 27.8118; Globulin 2.4 g/dL (1.3-4.6); Glucose 140 mg/dL (65-115); Osmolality Calculated 279 mOsm/kg (285-295); Potassium 4.4 mmol/L (3.5-5.1); Sodium 133 mmol/L (136-145); Total Bilirubin 0.3 mg/dL (0.15-1.2); Total Protein 6.1 g/dL (6.6-8.7)
[2024-11-16 06:50] LABS: Glucose Point of Care 143 mg/dL (70-110)
--- NOTE | 2024-11-16 08:01 | P.PN_ITS ---
Subjective 2 Subjective: Patient seen at bedside this morning. Resting comfortably. Day 1 status post left open reduction internal fixation left trimalleolar ankle fracture. Pain is well-controlled. Patient does have new complaint of which she believes is a UTI. She states that this was something that she was dealing with a couple days prior to the injury at home as well. Vitals/I&O/Wt Last Vital Signs Temp 97.7 F 11/16/24 05:27 Pulse 48 L 11/16/24 05:27 Resp 13 11/16/24 05:27 BP 98/53 11/16/24 05:27 Pulse Ox 95 11/16/24 05:27 O2 Del Method Room Air 11/16/24 05:27 O2 Flow Rate 2 11/15/24 14:16 11/15/24 11/16/24 11/16/24 22:59 06:59 14:59 Intake Total 645 / 1382.5 Output Total 90 / 100 60 / 160 Balance 555 / 1282.5 -60 / 1222.5 Weight last 48 hrs Weight 172 lb Weight 172 lb 14.4 oz Weight 164 lb Physical Exam 2 Narrative: BELOW IS A FOCUSED LOWER EXTREMITY EXAM GENERAL: A&O x 3 VASCULAR: DP/PT pulses palpable 2/4 with CFT intact, <3seconds to distal digits DERMATOLOGICAL: Surgical dressing clean, dry, intact. No strikethrough noted. MUSCULOSKELETAL: Full musculoskeletal exam to left lower extremity deferred secondary to posttraumatic state. No pain with calf squeeze postoperatively NEUROLOGICAL: Neurological sensation to the affected foot and ankle is present through L4-S1 dermatomes with no hyper/hypoesthesias, negative Tinel or Valleix's sign Data 11/16/24 04:17 11/16/24 04:17 A&P Assessment and plan (1) Trimalleolar fracture of left ankle: (2) Type 2 diabetes mellitus: Plan - Status post ORIF left trimalleolar ankle fracture -Labs and vitals reviewed -WBC 6.73 - VSS -Diet: Okay for diet -Pain Mgmt: Hydrocodone 5?3 25 every 4 hours as needed for pain -Weight bearing: Nonweightbearing to left lower extremity -Dressings: Leave surgical dressing clean, dry, intact -Continue current Abx therapy until ID and Sensitivity results -Trend labs -Discharge plan: Patient will be okay to discharge to SNF once placement is arranged. I discussed with patient and patient's family member regarding patient's who is going to be unable to care for himself while patient is in SNF. I discussed case with Dr. Le Ibrahim, patient's primary care provider. Patient's is going to be admitted to [facility] in [place]. Upon discharge, patient will be nonweightbearing for 6 to 8 weeks. Patient will need wheelchair to facilitate nonweightbearing status. Upon discharge, patient will be able to weight-bear to nonoperative extremity for transfers only. Surgical dressing will remain clean, dry, intact until follow- up with podiatry in the outpatient setting. Recommend follow-up within 7 to 10 days from discharge from hospital. -Podiatry will continue to round on patient daily and provide recommendations PDMP PDMP Reviewed: Not Reviewed Attestations 2 Medical Necessity Statement*: See hospitalist note Coding Level of Care Code Acute Code for Chg Fwd Diagnoses Trimalleolar fracture of left ankle S82.852A Type 2 diabetes mellitus E11.9
[2024-11-16] MEDS: gabapentin 300 mg Capsule PO ×3 (08:21→20:05)
[2024-11-16] MEDS: baclofen 10 mg Tablet PO (08:21)
[2024-11-16] MEDS: levothyroxine 50 mcg Tablet PO (08:21)
[2024-11-16] MEDS: pantoprazole DR 40 mg Tablet PO (08:22)
[2024-11-16] MEDS: chlorthalidone 25 mg Tablet PO (08:22)
[2024-11-16] MEDS: oxybutynin chloride XL 5 MG TABLET 10 MG PO (08:22)
[2024-11-16] MEDS: insulin lispro 100 unit/1 mL SUBCUT ×3 (08:22→17:48)
[2024-11-16] MEDS: aspirin 81 mg EC Tablet PO (08:22)
--- NOTE | 2024-11-16 10:01 | PC.SOCIAL ---
IMM Update pg 2 of IMM Updated and reviewed w/ patient. Copy provided and copy dated, initialed and placed in chart.
[2024-11-16 11:04] LABS: Glucose Point of Care 166 mg/dL (70-110)
[2024-11-16] MEDS: HYDROcodone-acetaminophen 5-325 mg Tablet 1 TAB PO (14:11)
--- NOTE | 2024-11-16 14:21 | PM.PN ---
Subjective Subjective: No new complaints. States pain is well-controlled. Medications: Reviewed: Yes Vitals/I&O/Wt Last Vital Signs Temp 97.7 F 11/16/24 12:24 Pulse 62 11/16/24 12:24 Resp 18 11/16/24 12:24 BP 165/84 11/16/24 12:24 Pulse Ox 99 11/16/24 12:24 O2 Del Method Room Air 11/16/24 12:24 O2 Flow Rate 2 11/15/24 14:16 11/15/24 11/16/24 11/16/24 22:59 06:59 14:59 Intake Total 645 / 1382.5 714 / 714 Output Total 90 / 100 60 / 160 Balance 555 / 1282.5 -60 / 1222.5 714 / 714 Weight last 48 hrs Weight 78.018 kg Weight 78.426 kg Weight 74.389 kg Physical Exam Narrative: General: No acute distress, AO x3 HEENT: PERRLA, pupils bilaterally equal and reactive, pallors not present Chest: Normal vesicular breath sounds, no added sounds, equal good air entry bilaterally CVS: S1-S2 regular, no murmurs, no tachycardia, no gallops, no rubs Abdomen: Soft, nontender, no organomegaly, bowel sounds present Neuro: No focal deficits, no facial deformity, AO x3, power 5/5 in all limbs Data 11/16/24 04:17 11/16/24 04:17 Micro: Microbiology 11/15/24 05:00 Urine Culture - Preliminary Urine,Clean Catch Gram Negative Rods A&P Assessment and plan (1) Ankle fracture: (2) Benign hypertension: (3) Paroxysmal SVT (supraventricular tachycardia): (4) Hyperlipidemia: Qualifiers: Hyperlipidemia type: mixed hyperlipidemia Qualified Code(s): E78.2 - Mixed hyperlipidemia (5) Controlled type 2 diabetes mellitus without complication, without long-term current use of insulin: (6) Adult onset hypothyroidism: (7) Osteoporosis: Plan Ankle fracture CT/CT ankle LT wo con* [id number] IMPRESSION: 1. Acute minimally comminuted oblique fracture of the lateral malleolus. 2. Acute comminuted fracture of the medial malleolus and posterior malleolus. PLAN: -NPO -morphine for pain control -will monitor closely -podiatry consulted -urinalysis -Pseudohyponatremia, second hyperglycemia, monitor - Type 2 diabetes mellitus, low-dose sliding scale - FELISA, IV fluids - Full code - Lovenox for DVT prophylaxis November 16, 2024 Status post ORIF of the left ankle on November 15, 2024. Patient states pain is currently well-controlled. Patient would need to be nonweightbearing while her fracture heals. Currently patient lives with an elderly who is unable to care for her. She requires moderate to maximum assistance with transfers and mobility. She is likely to need ongoing therapy and safe disposition planning. Agreeable for fdc placement.Urine culture showing gram-negative rods. Start ceftriaxone 1 g IV every 24 hours. PDMP PDMP Reviewed: Not Reviewed Attestations Medical Necessity Statement*: Continued rehab, appropriate disposition planning, IV antibiotics for UTI, pending culture and sensitivity. Coding Level of Care Code Acute Code for [facility] Diagnoses Ankle fracture S82.899A Benign hypertension I10 Paroxysmal SVT (supraventricular tachycardia) I47.10 Mixed hyperlipidemia E78.2 Hyperlipidemia type: mixed hyperlipidemia Controlled type 2 diabetes mellitus without complication, without long-term current use of insulin E11.9 Adult onset hypothyroidism E03.8 Osteoporosis M81.0
[2024-11-16] MEDS: cefTRIAXone 1,000 mg SDV 1000 MG IVP (15:50)
[2024-11-16 17:10] LABS: Glucose Point of Care 152 mg/dL (70-110)
[2024-11-16] MEDS: enoxaparin 30 mg/0.3 mL Syringe SUBCUT (17:48)
[2024-11-16] MEDS: doxepin 25 mg Capsule PO (20:05)
[2024-11-16 21:21] LABS: Glucose Point of Care 116 mg/dL (70-110)
[2024-11-17] VITALS (10 sets, daily range): BP systolic 96–131; BP diastolic 55–76; PULSE 56–77; RESP 16–19; TEMP 36.4–36.9; O2SAT 90–96
[2024-11-17] MEDS: pantoprazole 40 mg SDV IVP (04:02)
[2024-11-17 06:39] LABS: Glucose Point of Care 131 mg/dL (70-110)
[2024-11-17] MEDS: baclofen 10 mg Tablet PO (08:16)
[2024-11-17] MEDS: gabapentin 300 mg Capsule PO ×3 (08:16→19:55)
[2024-11-17] MEDS: oxybutynin chloride XL 5 MG TABLET 10 MG PO (08:16)
[2024-11-17] MEDS: levothyroxine 50 mcg Tablet PO (08:17)
[2024-11-17] MEDS: chlorthalidone 25 mg Tablet PO (08:17)
[2024-11-17] MEDS: pantoprazole DR 40 mg Tablet PO (08:17)
[2024-11-17] MEDS: aspirin 81 mg EC Tablet PO (08:17)
[2024-11-17] MEDS: HYDROcodone-acetaminophen 5-325 mg Tablet 1 TAB PO ×2 (08:20→19:55)
[2024-11-17] MEDS: morphine 4 mg/mL SDV 1 mL 2 MG IVP (10:06)
[2024-11-17 11:03] LABS: Glucose Point of Care 121 mg/dL (70-110)
--- NOTE | 2024-11-17 12:02 | P.PN_ITS ---
Subjective 2 Subjective: Patient seen at bedside this morning. Resting comfortably. No overnight events. Pain is well-controlled. Vitals/I&O/Wt Last Vital Signs Temp 97.5 F L 11/17/24 11:29 Pulse 64 11/17/24 11:29 Resp 17 11/17/24 11:29 BP 108/55 11/17/24 11:29 Pulse Ox 96 11/17/24 11:29 O2 Del Method Room Air 11/17/24 11:29 O2 Flow Rate 2 11/15/24 14:16 11/16/24 11/17/24 11/17/24 22:59 06:59 14:59 Intake Total 240 / 954 480 / 480 Balance 240 / 954 480 / 480 Weight last 48 hrs Weight 181 lb 11.2 oz Weight 172 lb Weight 172 lb 14.4 oz Physical Exam 2 Narrative: BELOW IS A FOCUSED LOWER EXTREMITY EXAM GENERAL: A&O x 3 VASCULAR: DP/PT pulses palpable 2/4 with CFT intact, <3seconds to distal digits DERMATOLOGICAL: Surgical dressing clean, dry, intact. No strikethrough noted. MUSCULOSKELETAL: Full musculoskeletal exam to left lower extremity deferred secondary to posttraumatic state. No pain with calf squeeze postoperatively NEUROLOGICAL: Neurological sensation to the affected foot and ankle is present through L4-S1 dermatomes with no hyper/hypoesthesias, negative Tinel or Valleix's sign Data 11/16/24 04:17 11/16/24 04:17 Micro: Microbiology 11/15/24 05:00 Urine Culture - Final Urine,Clean Catch Klebsiella pneumoniae A&P Assessment and plan (1) Trimalleolar fracture of left ankle: (2) Type 2 diabetes mellitus: Plan - Status post ORIF left trimalleolar ankle fracture -Labs and vitals reviewed -WBC 6.73 - VSS -Diet: Okay for diet -Pain Mgmt: Hydrocodone 5?3 25 every 4 hours as needed for pain. Pain well- controlled with hydrocodone 5/325 -Weight bearing: Nonweightbearing to left lower extremity. Okay to weight-bear to contralateral limb for transfers only. Okay to use bedside commode -Dressings: Leave surgical dressing clean, dry, intact -Trend labs -Discharge plan: Patient will be okay to discharge to SNF once placement is arranged. I discussed with patient and patient's family member regarding patient's who is going to be unable to care for himself while patient is in SNF. I discussed case with Dr. Le Ibrahim, patient's primary care provider. Patient's is going to be admitted to [facility] in [place]. Upon discharge, patient will be nonweightbearing for 6 to 8 weeks. Patient will need wheelchair to facilitate nonweightbearing status. Upon discharge, patient will be able to weight-bear to nonoperative extremity for transfers only. Surgical dressing will remain clean, dry, intact until follow- up with podiatry in the outpatient setting. Recommend follow-up within 7 to 10 days from discharge from hospital. -Podiatry will continue to round on patient daily and provide recommendations PDMP PDMP Reviewed: Not Reviewed Attestations 2 Medical Necessity Statement*: Awaiting placement to [facility] Coding Level of Care Code Acute Code for Chg Fwd Diagnoses Trimalleolar fracture of left ankle S82.852A Type 2 diabetes mellitus E11.9
--- NOTE | 2024-11-17 13:24 | P.PN_ITS ---
Subjective 2 Subjective: No new complaints today. Feels well overall. Awaiting appropriate disposition planning. Medications: Reviewed: Yes Vitals/I&O/Wt Last Vital Signs Temp 97.5 F L 11/17/24 11:29 Pulse 64 11/17/24 11:29 Resp 17 11/17/24 11:29 BP 108/55 11/17/24 11:29 Pulse Ox 96 11/17/24 11:29 O2 Del Method Room Air 11/17/24 11:29 O2 Flow Rate 2 11/15/24 14:16 11/16/24 11/17/24 11/17/24 22:59 06:59 14:59 Intake Total 240 / 954 840 / 840 Balance 240 / 954 840 / 840 Weight last 48 hrs Weight 82.418 kg Weight 78.018 kg Weight 78.426 kg Physical Exam 2 Narrative: General: No acute distress, AO x3 HEENT: PERRLA, pupils bilaterally equal and reactive, pallors not present Chest: Normal vesicular breath sounds, no added sounds, equal good air entry bilaterally CVS: S1-S2 regular, no murmurs, no tachycardia, no gallops, no rubs Abdomen: Soft, nontender, no organomegaly, bowel sounds present Neuro: No focal deficits, no facial deformity, AO x3, power 5/5 in all limbs Data 11/16/24 04:17 11/16/24 04:17 Micro: Microbiology 11/15/24 05:00 Urine Culture - Final Urine,Clean Catch Klebsiella pneumoniae A&P Assessment and plan (1) Ankle fracture: (2) Benign hypertension: (3) Paroxysmal SVT (supraventricular tachycardia): (4) Hyperlipidemia: Qualifiers: Hyperlipidemia type: mixed hyperlipidemia Qualified Code(s): E78.2 - Mixed hyperlipidemia (5) Controlled type 2 diabetes mellitus without complication, without long-term current use of insulin: (6) Adult onset hypothyroidism: (7) Osteoporosis: Plan Ankle fracture CT/CT ankle LT wo con* [id number] IMPRESSION: 1. Acute minimally comminuted oblique fracture of the lateral malleolus. 2. Acute comminuted fracture of the medial malleolus and posterior malleolus. PLAN: -NPO -morphine for pain control -will monitor closely -podiatry consulted -urinalysis -Pseudohyponatremia, second hyperglycemia, monitor - Type 2 diabetes mellitus, low-dose sliding scale - FELISA, IV fluids - Full code - Lovenox for DVT prophylaxis November 16, 2024 Status post ORIF of the left ankle on November 15, 2024. Patient states pain is currently well-controlled. Patient would need to be nonweightbearing while her fracture heals. Currently patient lives with an elderly who is unable to care for her. She requires moderate to maximum assistance with transfers and mobility. She is likely to need ongoing therapy and safe disposition planning. Agreeable for longterm placement.Urine culture showing gram-negative rods. Start ceftriaxone 1 g IV every 24 hours. November 17, 2024 Patient states pain is well-controlled. No new complaints today. Urine culture showing Klebsiella pneumonia. Continue ceftriaxone. Patient is awaiting appropriate disposition planning. Plan transition to SNF. For ongoing rehab. Patient lives at home with elderly who is unable to assist her while she remains nonweightbearing over the next few weeks. PDMP PDMP Reviewed: Not Reviewed Attestations 2 Medical Necessity Statement*: Awaiting appropriate disposition planning Coding Level of Care Code Acute Code for g Fwd Diagnoses Ankle fracture S82.899A Benign hypertension I10 Paroxysmal SVT (supraventricular tachycardia) I47.10 Mixed hyperlipidemia E78.2 Hyperlipidemia type: mixed hyperlipidemia Controlled type 2 diabetes mellitus without complication, without long-term current use of insulin E11.9 Adult onset hypothyroidism E03.8 Osteoporosis M81.0
[2024-11-17] MEDS: cefTRIAXone 1,000 mg SDV 1000 MG IVP (14:16)
[2024-11-17 16:58] LABS: Glucose Point of Care 197 mg/dL (70-110)
[2024-11-17] MEDS: enoxaparin 30 mg/0.3 mL Syringe SUBCUT (17:22)
[2024-11-17] MEDS: insulin lispro 100 unit/1 mL SUBCUT (17:22)
[2024-11-17] MEDS: doxepin 25 mg Capsule PO (19:55)
[2024-11-17 20:51] LABS: Glucose Point of Care 171 mg/dL (70-110)
[2024-11-18] VITALS (10 sets, daily range): BP systolic 107–131; BP diastolic 53–77; PULSE 59–77; RESP 16–19; TEMP 36.4–36.9; O2SAT 91–97
[2024-11-18] MEDS: HYDROcodone-acetaminophen 5-325 mg Tablet 1 TAB PO ×2 (04:16→19:37)
[2024-11-18 06:27] LABS: Glucose Point of Care 165 mg/dL (70-110)
[2024-11-18] MEDS: oxybutynin chloride XL 5 MG TABLET 10 MG PO (09:25)
[2024-11-18] MEDS: gabapentin 300 mg Capsule PO ×3 (09:26→20:21)
[2024-11-18] MEDS: aspirin 81 mg EC Tablet PO (09:26)
[2024-11-18] MEDS: baclofen 10 mg Tablet PO (09:26)
[2024-11-18] MEDS: insulin lispro 100 unit/1 mL SUBCUT (09:26)
[2024-11-18] MEDS: levothyroxine 50 mcg Tablet PO (09:26)
[2024-11-18] MEDS: chlorthalidone 25 mg Tablet PO (09:26)
[2024-11-18] MEDS: pantoprazole 40 mg SDV IVP (09:28)
[2024-11-18 11:27] LABS: Glucose Point of Care 140 mg/dL (70-110)
--- NOTE | 2024-11-18 12:38 | P.PN_ITS ---
Subjective 2 Subjective: Patient seen at bedside this morning. Resting comfortably. Pain is well- controlled. No overnight events. Vitals/I&O/Wt Last Vital Signs Temp 97.9 F 11/18/24 11:46 Pulse 63 11/18/24 11:46 Resp 17 11/18/24 11:46 BP 107/53 11/18/24 11:46 Pulse Ox 94 11/18/24 11:46 O2 Del Method Room Air 11/18/24 11:46 O2 Flow Rate 2 11/15/24 14:16 11/17/24 11/18/24 11/18/24 22:59 06:59 14:59 Intake Total 480 / 1320 360 / 360 Output Total 250 / 250 Balance 480 / 1320 110 / 110 Weight last 48 hrs Weight 187 lb Weight 181 lb 11.2 oz Physical Exam 2 Narrative: BELOW IS A FOCUSED LOWER EXTREMITY EXAM GENERAL: A&O x 3 VASCULAR: DP/PT pulses palpable 2/4 with CFT intact, <3seconds to distal digits DERMATOLOGICAL: Surgical dressing clean, dry, intact. No strikethrough noted. MUSCULOSKELETAL: Full musculoskeletal exam to left lower extremity deferred secondary to posttraumatic state. No pain with calf squeeze postoperatively NEUROLOGICAL: Neurological sensation to the affected foot and ankle is present through L4-S1 dermatomes with no hyper/hypoesthesias, negative Tinel or Valleix's sign Data 11/16/24 04:17 11/16/24 04:17 Micro: Microbiology 11/15/24 05:00 Urine Culture - Final Urine,Clean Catch Klebsiella pneumoniae A&P Assessment and plan (1) Trimalleolar fracture of left ankle: (2) Type 2 diabetes mellitus: Plan - Status post ORIF left trimalleolar ankle fracture -Labs and vitals reviewed -WBC 6.73 - VSS -Diet: Okay for diet -Pain Mgmt: Hydrocodone 5?3 25 every 4 hours as needed for pain. Pain well- controlled with hydrocodone 5/325 -Weight bearing: Nonweightbearing to left lower extremity. Okay to weight-bear to contralateral limb for transfers only. Okay to use bedside commode -Dressings: Leave surgical dressing clean, dry, intact -Trend labs -Discharge plan: Patient will be okay to discharge to SNF once placement is arranged. I discussed with patient and patient's family member regarding patient's who is going to be unable to care for himself while patient is in SNF. I discussed case with Dr. Le Ibrahim, patient's primary care provider. Patient's is going to be admitted to [facility] in [place]. Upon discharge, patient will be nonweightbearing for 6 to 8 weeks. Patient will need wheelchair to facilitate nonweightbearing status. Upon discharge, patient will be able to weight-bear to nonoperative extremity for transfers only. Surgical dressing will remain clean, dry, intact until follow- up with podiatry in the outpatient setting. Recommend follow-up within 7 to 10 days from discharge from hospital. - No further intervention from podiatry during this admission. Podiatry will sign off. Please reconsult if needed. PDMP PDMP Reviewed: Not Reviewed Attestations 2 Medical Necessity Statement*: Awaiting disposition planning Coding Level of Care Code Acute Code for Chg Fwd Diagnoses Trimalleolar fracture of left ankle S82.852A Type 2 diabetes mellitus E11.9
[2024-11-18] MEDS: cefTRIAXone 1,000 mg SDV 1000 MG IVP (14:09)
--- NOTE | 2024-11-18 16:00 | P.PN_ITS ---
Subjective 2 Subjective: no new complaints today, comfortable, denies any pain Medications: Reviewed: Yes Vitals/I&O/Wt Last Vital Signs Temp 97.9 F 11/19/24 03:46 Pulse 63 11/19/24 05:16 Resp 20 H 11/19/24 03:46 BP 107/54 11/19/24 03:46 Pulse Ox 93 11/19/24 03:46 O2 Del Method Room Air 11/19/24 03:46 O2 Flow Rate 2 11/15/24 14:16 11/18/24 11/19/24 11/19/24 22:59 06:59 14:59 Intake Total 360 / 1080 0 / 1080 Output Total 0 / 550 Balance 360 / 530 0 / 530 Weight last 48 hrs Weight 84.822 kg Physical Exam 2 Narrative: General: No acute distress, AO x3 HEENT: PERRLA, pupils bilaterally equal and reactive, pallors not present Chest: Normal vesicular breath sounds, no added sounds, equal good air entry bilaterally CVS: S1-S2 regular, no murmurs, no tachycardia, no gallops, no rubs Abdomen: Soft, nontender, no organomegaly, bowel sounds present Neuro: No focal deficits, no facial deformity, AO x3, power 5/5 in all limbs Data 11/16/24 04:17 11/16/24 04:17 A&P Assessment and plan (1) Ankle fracture: (2) Benign hypertension: (3) Paroxysmal SVT (supraventricular tachycardia): (4) Hyperlipidemia: Qualifiers: Hyperlipidemia type: mixed hyperlipidemia Qualified Code(s): E78.2 - Mixed hyperlipidemia (5) Controlled type 2 diabetes mellitus without complication, without long-term current use of insulin: (6) Adult onset hypothyroidism: (7) Osteoporosis: Plan Ankle fracture CT/CT ankle LT wo con* [id number] IMPRESSION: 1. Acute minimally comminuted oblique fracture of the lateral malleolus. 2. Acute comminuted fracture of the medial malleolus and posterior malleolus. PLAN: -NPO -morphine for pain control -will monitor closely -podiatry consulted -urinalysis -Pseudohyponatremia, second hyperglycemia, monitor - Type 2 diabetes mellitus, low-dose sliding scale - FELISA, IV fluids - Full code - Lovenox for DVT prophylaxis November 16, 2024 Status post ORIF of the left ankle on November 15, 2024. Patient states pain is currently well-controlled. Patient would need to be nonweightbearing while her fracture heals. Currently patient lives with an elderly who is unable to care for her. She requires moderate to maximum assistance with transfers and mobility. She is likely to need ongoing therapy and safe disposition planning. Agreeable [facility] [place] [facility].Urine culture showing gram-negative rods. Start ceftriaxone 1 g IV every 24 hours. November 17, 2024 Patient states pain is well-controlled. No new complaints today. Urine culture showing Klebsiella pneumonia. Continue ceftriaxone. Patient is awaiting appropriate disposition planning. Plan transition to SNF. For ongoing rehab. Patient lives at home with elderly who is unable to assist her while she remains nonweightbearing over the next few weeks. November 18, 2024 No new complaints today, Awaiting disposition planning. Continue Ceftriaxone day 4 of 5 today for abx. Discontinue tomorrow after completing 5 days for uncomplicated UTI. PDMP PDMP Reviewed: Not Reviewed Attestations 2 Medical Necessity Statement*: awaiting appropriate disposition planning Coding Level of Care Code Acute Code for [facility] Fwd Diagnoses Ankle fracture S82.899A Benign hypertension I10 Paroxysmal SVT (supraventricular tachycardia) I47.10 Mixed hyperlipidemia E78.2 Hyperlipidemia type: mixed hyperlipidemia Controlled type 2 diabetes mellitus without complication, without long-term current use of insulin E11.9 Adult onset hypothyroidism E03.8 Osteoporosis M81.0
[2024-11-18 16:45] LABS: Glucose Point of Care 114 mg/dL (70-110)
[2024-11-18] MEDS: enoxaparin 30 mg/0.3 mL Syringe SUBCUT (17:17)
[2024-11-18 19:47] LABS: Glucose Point of Care 162 mg/dL (70-110)
[2024-11-18] MEDS: doxepin 25 mg Capsule PO (20:21)
[2024-11-19 03:46] VITALS: BP 107/54; PULSE 63; RESP 20; TEMP 36.6; O2SAT 93
[2024-11-19 05:16] VITALS: PULSE 63
[2024-11-19 06:39] LABS: Glucose Point of Care 146 mg/dL (70-110)
[2024-11-19 07:50] VITALS: BP 109/64; PULSE 65; RESP 17; TEMP 36.9; O2SAT 93
[2024-11-19 09:33] LABS: Basophils # 0.1 10^3/uL (0.0-0.1); Basophils % 0.7 %; Eosinophils # 0.3 10^3/uL (0.0-0.8); Eosinophils % 3.4 %; Hematocrit 37.8 % (36-47); Lymphocytes # 2.7 10^3/uL (0.8-4.8); Lymphocytes % 29.4 %; Mean Corpuscular HGB Conc 30.7 g/dL (30-55); Mean Corpuscular Hemoglobin 30.7 pg (27-33); Mean Platelet Volume 10.7 fL (7.4-10.4); Monocytes # 0.7 10^3/uL (0.2-0.9); Monocytes % 7.4 %; Neutrophils % 58.8 %; Nucleated Red Blood Cells % 0 %; Platelet Count 228 10^3/cmm (157-399); Red Blood Count 3.78 10^6/uL (3.85-5.65); Red Cell Distribution Width 13.2 % (12.1-15.1); White Blood Count 9.02 10^3/uL (3.29-11.43)
[2024-11-19] MEDS: levothyroxine 50 mcg Tablet PO (09:41)
[2024-11-19] MEDS: baclofen 10 mg Tablet PO (09:41)
[2024-11-19] MEDS: oxybutynin chloride XL 5 MG TABLET 10 MG PO (09:41)
[2024-11-19] MEDS: gabapentin 300 mg Capsule PO ×2 (09:42→14:55)
[2024-11-19] MEDS: aspirin 81 mg EC Tablet PO (09:42)
[2024-11-19] MEDS: insulin lispro 100 unit/1 mL SUBCUT ×2 (09:42→11:29)
[2024-11-19] MEDS: pantoprazole 40 mg SDV IVP (09:42)
[2024-11-19 09:52] LABS: Alanine Aminotransferase 12 U/L (0-33); Albumin Level 3.5 g/dL (3.5-5.2); Alkaline Phosphatase 98 U/L (35-105); Blood Urea Nitrogen 23 mg/dL (8-23); Calcium 9.1 mg/dL (8.5-10.5); Carbon Dioxide 24 mmol/L (22-29); Chloride 92 mmol/L (98-107); Creatinine Clr Calc Pharmacy 31.4131; Globulin 3.1 g/dL (1.3-4.6); Glucose 180 mg/dL (65-115); Osmolality Calculated 276 mOsm/kg (285-295); Sodium 129 mmol/L (136-145); Total Bilirubin 0.3 mg/dL (0.15-1.2); Total Protein 6.6 g/dL (6.6-8.7)
[2024-11-19 09:57] LABS: Anion Gap 17.3 (5-19); Aspartate Amino Transferase 18 U/L (0-32); Potassium 4.3 mmol/L (3.5-5.1)
[2024-11-19 10:51] LABS: Glucose Point of Care 185 mg/dL (70-110)
--- NOTE | 2024-11-19 11:25 | PM.DCS ---
Discharge Providers Date of Admission: 11/15/24 02:34 Date of Discharge: November 19, 2024 Attending Provider at Admission: Gerry Hernandez MD Attending Provider at Discharge: Key Paige MD Consults: Dr Arriaza Podiatry Primary Care Provider: Le Ibrahim MD Diagnoses at Discharge Discharge Diagnosis (1) Trimalleolar fracture of left ankle: Status: Acute Qualifiers: Encounter type: initial encounter Fracture type: closed Qualified Code(s): S82.852A - Displaced trimalleolar fracture of left lower leg, initial encounter for closed fracture (2) Status post ORIF of fracture of ankle: Status: Acute Permanent problem details: Dr Arriaza, trimalleloar fracture (3) Benign hypertension: Status: Chronic (4) Paroxysmal SVT (supraventricular tachycardia): Status: Chronic Permanent problem details: [facility]io at [facility] 11/22 4 episodes of 4 beats SVT (5) Hyperlipidemia: Status: Chronic Qualifiers: Hyperlipidemia type: mixed hyperlipidemia Qualified Code(s): E78.2 - Mixed hyperlipidemia (6) Controlled type 2 diabetes mellitus without complication, without long-term current use of insulin: Status: Chronic (7) Adult onset hypothyroidism: Status: Chronic (8) Osteoporosis: Status: Chronic Permanent problem details: 03.07.24 at [facility]; femoral neck -2.4--hip is decreased; repeat 1yr Reason for Visit Reason for Visit: FALL, LEFT ANKLE PAIN Brief History: Annette Egan is a 89 year old female With a past medical history of paroxysmal SVT, CKD stage III, type 2 diabetes, hypertension hyperlipidemia who presents [facility] for a fall. Patient tells me that last night, she was outside, the ground is uneven, unfortunately she twisted her ankle on the uneven ground, and fell to the ground, fell twisting her left ankle, fell on the left hip, left shoulder, no head trauma, no loss of consciousness, but was unable to get up off the ground, EMS was called, in the emergency room, she was found to have fracture dislocation of left ankle involving distal fibula and tibia without, patient was sedated with ketamine and had fracture/dislocation reduced, placed in a splint, orthopedic service has been consulted, currently patient is alert oriented x 3, following all commands, complaining of left ankle pain Hospital Course Hospital Course Mrs. Egan was admitted to a medical bed. She underwent open reduction and internal fixation by Dr. Arriaza on November 15. Urinalysis done on the day of admission was suggestive of urinary tract infection with positive nitrites and leukocyte esterase and significant white blood cells in urine. Urine culture grew out Klebsiella pneumonia. She received Rocephin during the hospital stay and will be transition to Augmentin for remainder of treatment. She had some hyponatremia felt in part due to pseudohyponatremia from hyperglycemia along with hydration. Recommend repeat basic metabolic panel in a week. She does have chronic kidney disease stage III yea with renal function at baseline. Have continued on home chlorthalidone. For DVT prophylaxis in the outpatient setting we will continue on Lovenox for 2 weeks given nonweightbearing status.I have held her home medication of losartan 100 mg daily as blood pressures are within normal range currently without this. Can be monitored for resumption of losartan when appropriate. On the day of discharge in stable condition. Pain controlled with current regimen. Reviewed plans and non-weight bearing status with patient and her and gave both a chance to ask questions. Discharge Data Studies Completed and Pending Completed Studies During Hospitalization Category Date Time Status CT ankle LT wo con* [id number] Stat Cat Scan 11/15/24 02:[address] head wo con* [id number] Routine Cat Scan 11/15/24 05:02 Completed XR ankle LT 2V [id number] Stat Exams 11/15/24 02:01 Completed XR ankle LT min 3V* [id number] Stat Exams 11/14/24 22:44 Completed XR hip LT 2-3V wo/w pel* [id number] Stat Exams 11/15/24 00:05 Completed XR shoulder LT min 2V* [id number] Stat Exams 11/15/24 00:05 Completed Pending at discharge Category Date Time Status XR ankle LT 2V [id number] Routine Exams 11/15/24 00:00 Taken Radiology Impressions Hip/Pelvis X-Ray 11/15/24 00:05 IMPRESSION: No acute bony findings. Shoulder X-Ray 11/15/24 00:05 IMPRESSION: No acute bony findings. Ankle X-Ray 11/15/24 02:01 IMPRESSION: Interval changes as above. Ankle CT 11/15/24 02:34 IMPRESSION: 1. Acute minimally comminuted oblique fracture of the lateral malleolus. 2. Acute comminuted fracture of the medial malleolus and posterior malleolus. Head CT 11/15/24 05:02 IMPRESSION: No acute intracranial abnormality. Laboratory Results WBC 9.02 10^3/uL (3.29-11.43) 11/19/24 09:24 RBC 3.78 10^6/uL (3.85-5.65) L 11/19/24 09:24 Hgb 11.60 g/dL (11.27-16.99) 11/19/24 09:24 Hct 37.8 % (36-47) 11/19/24 09:24 MCV 100.0 fl (85-98) H 11/19/24 09:24 MCH 30.7 pg (27-33) 11/19/24 09:24 MCHC 30.7 g/dL (30-55) 11/19/24 09:24 RDW 13.2 % (12.1-15.1) 11/19/24 09:24 Plt Count 228 10^3/cmm (157-399) 11/19/24 09:24 MPV 10.7 fL (7.4-10.4) H 11/19/24 09:24 Neut % (Auto) 58.8 % 11/19/24 09:24 Lymph % (Auto) 29.4 % 11/19/24 09:24 [place] % (Auto) 7.4 % 11/19/24 09:24 Eos % (Auto) 3.4 % 11/19/24 09:24 Baso % (Auto) 0.7 % 11/19/24 09:24 Neut # (Auto) 5.30 10^3/uL (1.8-7.7) 11/19/24 09:24 Lymph # (Auto) 2.7 10^3/uL (0.8-4.8) 11/19/24 09:24 [place] # (Auto) 0.7 10^3/uL (0.2-0.9) 11/19/24 09:24 Eos # (Auto) 0.3 10^3/uL (0.0-0.8) 11/19/24 09:24 Baso # (Auto) 0.1 10^3/uL (0.0-0.1) 11/19/24 09:24 Nucleated RBC % (auto) 0 % 11/19/24 09:24 Nucleated RBCs # 0.0 /100WBC 11/19/24 09:24 Sodium 129 mmol/L (136-145) L 11/19/24 09:24 Potassium 4.3 mmol/L (3.5-5.1) 11/19/24 09:24 Chloride 92 mmol/L (98-107) L 11/19/24 09:24 Carbon Dioxide 24 mmol/L (22-29) 11/19/24 09:24 Anion Gap 17.3 (5-19) 11/19/24 09:24 BUN 23 mg/dL (8-23) 11/19/24 09:24 Creatinine 1.2 mg/dL (0.5-0.9) H 11/19/24 09:24 GFR Calculation Not Reportable 11/19/24 09:24 Glucose 180 mg/dL (65-115) H 11/19/24 09:24 POC Glucose 185 mg/dL (70-110) H 11/19/24 10:45 Estimat Average Glucose 123 11/15/24 01:01 Hemoglobin A1c 5.9 % (4.0-6.0) 11/15/24 01:01 Calculated Osmolality 276 mOsm/kg (285-295) L 11/19/24 09:24 Calcium 9.1 mg/dL (8.5-10.5) 11/19/24 09:24 Magnesium 1.6 mg/dL (1.7-2.3) L 11/15/24 01:01 Total Bilirubin 0.3 mg/dL (0.15-1.2) 11/19/24 09:24 AST 18 U/L (0-32) 11/19/24 09:24 ALT 12 U/L (0-33) 11/19/24 09:24 Alkaline Phosphatase 98 U/L (35-105) 11/19/24 09:24 Creatine Kinase 161 U/L (26-192) 11/15/24 01:01 Creatine Kinase Cancelled 11/15/24 01:01 Total Protein 6.6 g/dL (6.6-8.7) 11/19/24 09:24 Albumin 3.5 g/dL (3.5-5.2) 11/19/24 09:24 Globulin 3.1 g/dL (1.3-4.6) 11/19/24 09:24 Urine Color Yellow (Yellow) 11/15/24 05:00 Urine Appearance Clear (CLEAR) 11/15/24 05:00 Urine pH 5.5 (5-7) 11/15/24 05:00 Ur Specific [place] 1.025 (1.005-1.030) 11/15/24 05:00 Urine Protein Negative (Negative) 11/15/24 05:00 Urine Glucose (UA) Negative (Normal) 11/15/24 05:00 Urine Ketones Trace (Negative) 11/15/24 05:00 Urine Blood Negative (Negative) 11/15/24 05:00 Urine Nitrate Positive (Negative) A 11/15/24 05:00 Urine Bilirubin Negative (Negative) 11/15/24 05:00 Urine Urobilinogen 0.2 mg/dL (Negative) 11/15/24 05:00 Ur Leukocyte Esterase 1+ (Negative) A 11/15/24 05:00 Urine RBC 0-2 /hpf (0-2) 11/15/24 05:00 Urine WBC 51-100 /hpf (0-5) H 11/15/24 05:00 Ur Squamous Epith Cells 0-5 /hpf (0-5) 11/15/24 05:00 Amorphous Sediment Not Reportable 11/15/24 05:00 Urine Bacteria 4+ /hpf (NONE) H 11/15/24 05:00 Hyaline Casts 2.87 /lpf 11/15/24 05:00 Vitals Last Vital Signs Temp 98.4 F 11/19/24 07:50 Pulse 65 11/19/24 07:50 Resp 17 11/19/24 07:50 BP 109/64 11/19/24 07:50 Pulse Ox 93 11/19/24 07:50 O2 Del Method Room Air 11/19/24 07:50 O2 Flow Rate 2 11/15/24 14:16 Discharge Plan Discharge Patient Disposition: Xfer SNF Condition: Stable Prescriptions: New hydrocodone-acetaminophen 5-325 mg Tablet 1 tab PO Q6H PRN (Reason: pain) Qty: 30 0RF sennosides-docusate sodium [Senna-S] 8.6-50 mg tablet 1 tab-cap PO BID Qty: 60 0RF enoxaparin 30 mg/0.3 mL Syringe 30 mg SUBCUT Q24H Qty: 10 0RF amoxicillin-pot clavulanate 875-125 mg tablet 1 tab PO BID Qty: 6 0RF Continued levothyroxine 50 mcg tablet 50 mcg PO DAILY Qty: 90 3RF chlorthalidone 25 mg tablet 25 mg PO DAILY Qty: 90 3RF omeprazole 40 mg capsule,delayed release(DR/EC) 40 mg PO DAILY Qty: 90 3RF gabapentin 300 mg capsule 300 mg PO TID Qty: 270 2RF oxybutynin chloride 10 mg tablet extended release 24hr 10 mg PO DAILY Qty: 90 3RF baclofen 10 mg tablet 10 mg PO DAILY Qty: 90 1RF doxepin 25 mg capsule See Rx Instructions .ROUTE .COMPLEX Qty: 90 1RF Dose Instruction: TAKE ONE CAPSULE BY MOUTH DAILY AT BEDTIME FOR SLEEP Rx Instructions: TAKE ONE CAPSULE BY MOUTH DAILY AT BEDTIME FOR SLEEP aspirin [Robyn Low Dose Aspirin] 81 mg Tablet,Delayed Release (Dr/Ec) 81 mg PO DAILY Held losartan 100 mg tablet 100 mg PO DAILY Qty: 90 3RF Hold Instructions: until blood pressures are regularly above 120/80 hydrocodone-acetaminophen 5-325 mg tablet 1 tab PO BID PRN (Reason: pain) 30 Days Qty: 60 0RF Hold Instructions: until other prescription is completed Discharge Orders: Discharge Order (Routine); Ordered 11/19/24 Ordered By: Key Paige Referrals: [facility] [Outside] Harry Arriaza DPM [Physician] - 7-10 days (hospital and OR follow up We have notified your physician's clinic of the need for a follow-up appointment to be scheduled. If you have not heard from them within the next 2 business days, please call them directly. ) Le Ibrahim MD [Primary Care Provider] - Discharge Diet: Advance as tolerated Discharge Activity: Limit activity as instructed Patient Instructions: Acute Wound Care (DC), Opioid Safety, Post Anesthesia Care, ORIF of an Ankle Fracture (DC), Hydrocodone/Acetaminophen (By mouth), Amoxicillin/Clavulanate Potassium (By mouth), Enoxaparin (By injection), Laxative, Stimulant (By mouth) Activity Restrictions/Additional Instructions: NON-WEIGHT BEARING TO LEFT Lower Extremity at all times Weight bearing to right lower extremity for transfers only Leave surgical dressings in place and clean/dry Follow up with Dr Arriaza in 7-10 days For pain management, may take hydrocodone every 4-6 hours as needed Take stool softners with pain medications to minimize consitipation risk Status post open reduciton and internal fixzation of left trimalleolar fracture on 11/15/2024 Discharge Attestations Time Spent in Discharge Care*: greater than 30 min Specific Discharge Activities: educating patient, documenting/other paperwork and evaluating patient/reviewing data Status at Discharge: Cognitive status at discharge: cognitively intact, Behavioral status at discharge: cooperative, Functional status at discharge: other (non weight bearing as noted post surgery), Overall status at discharge: patient is not back to baseline Quality Metrics Clinical Quality Measures [ No reported AMI, CVA or VTE this stay] Coding Level of Care Code 36101 Diagnoses Closed trimalleolar fracture of left ankle, initial encounter S82.852A Encounter type: initial encounter Fracture type: closed Status post ORIF of fracture of ankle Z98.890; Z87.81 Benign hypertension I10 Paroxysmal SVT (supraventricular tachycardia) I47.10 Mixed hyperlipidemia E78.2 Hyperlipidemia type: mixed hyperlipidemia Controlled type 2 diabetes mellitus without complication, without long-term current use of insulin E11.9 Adult onset hypothyroidism E03.8 Osteoporosis M81.0
[2024-11-19 11:33] VITALS: BP 103/66; PULSE 81; RESP 17; TEMP 36.7; O2SAT 96
[2024-11-19 12:43] VITALS: BP 103/66; PULSE 81; RESP 17; TEMP 36.7; O2SAT 96
--- NOTE | 2024-11-19 12:54 | PC.SOCIAL ---
IMM UPDATED IMM dated and initialed, copy placed in chart and copy given to patient
== END 2024-11-19 15:10 | disposition skilled nursing facility (03) | DRG 493 ==
LOC: ER 11-15 02:51 → ER IP 11-15 02:57 → MEDSURG 11-15 12:46
PROVIDERS: Physician Assistant; Podiatrist Foot & Ankle Surgery; Student in an Organized Health Care Education/Training Program; Admitting Provider Family Medicine; Emergency Provider Student in an Organized Health Care Education/Training Program; PCP Family Medicine; Visit Provider Hospitalist
PROC: 0QSK04Z Reposition Left Fibula with Internal Fixation Device, Open Approach (ICD-10-PCS; principal; 2024-11-15 12:05)
DX: S82.852A Displaced trimalleolar fracture of left lower leg, initial encounter for closed fracture (principal); E87.1 Hypo-osmolality and hyponatremia; I47.10 Supraventricular tachycardia, unspecified; N39.0 Urinary tract infection, site not specified; N17.9 Acute kidney failure, unspecified; W01.0XXA Fall on same level from slipping, tripping and stumbling without subsequent striking against object, initial encounter; I12.9 Hypertensive chronic kidney disease with stage 1 through stage 4 chronic kidney disease, or unspecified chronic kidney disease; E11.22 Type 2 diabetes mellitus with diabetic chronic kidney disease; E11.65 Type 2 diabetes mellitus with hyperglycemia; N18.31 Chronic kidney disease, stage 3a; E78.2 Mixed hyperlipidemia; E03.9 Hypothyroidism, unspecified; M81.0 Age-related osteoporosis without current pathological fracture; B96.1 Klebsiella pneumoniae [K. pneumoniae] as the cause of diseases classified elsewhere; K21.9 Gastro-esophageal reflux disease without esophagitis; Z87.891 Personal history of nicotine dependence
CPT/HCPCS: 36415; 36416; 70450; 73030; 73502; 73600; 73610; 73700; 76000; 80053; 81001; 82550; 82962; 83036; 83735; 85025; 87077; 87086; 87186; 93005; 94664; 96372; 97110; 97162; 97165; 97530; 97535; 99285; C1713; J0690; J0696; J1100; J1171; J1650; J1815; J2270; J2371; J2405; J2470; J2704; J2795; J3010; J3490; J7030; J9999

== ENCOUNTER → 2024-11-28 09:07 | Outpatient (BNVA) | payer MEDICARE, SELFPAY | PROVIDERS: PCP Family Medicine; Visit Provider Podiatrist Foot & Ankle Surgery | DX: Z98.890 Other specified postprocedural states (principal); Z87.81 Personal history of (healed) traumatic fracture | CPT/HCPCS: 73610; 99024 ==

== ENCOUNTER → 2024-12-13 15:47 | Outpatient (BNVA) | payer MEDICARE, SELFPAY | PROVIDERS: PCP Family Medicine; Visit Provider Podiatrist Foot & Ankle Surgery | DX: Z98.890 Other specified postprocedural states (principal); Z87.81 Personal history of (healed) traumatic fracture; S82.852D Displaced trimalleolar fracture of left lower leg, subsequent encounter for closed fracture with routine healing; X58.XXXD Exposure to other specified factors, subsequent encounter | CPT/HCPCS: 73610; 99024 ==

== ENCOUNTER → 2024-12-27 06:50 | Outpatient (BNVA) | payer MEDICARE, SELFPAY | PROVIDERS: PCP Family Medicine; Visit Provider Podiatrist Foot & Ankle Surgery | DX: Z98.890 Other specified postprocedural states (principal); Z87.81 Personal history of (healed) traumatic fracture | CPT/HCPCS: 73610; 99024 ==

== ENCOUNTER 2025-01-09 14:57 | Emergency (ER) | payer MEDICARE, SELFPAY ==
[2025-01-09 15:00] VITALS: BP 154/65; PULSE 67; RESP 18; TEMP 36.5; O2SAT 99
--- NOTE | 2025-01-09 15:07 | USCV_ITS ---
Jignesh Annette Age: 89 Gender: F : 1935 Exam Date: 01/09/2025 15:32 Ordering Phys: Carmelo Keith DO Technologist: R Exam Location: [facility] [place]_ Indication: post ankle surgery swelling HISTORY: Lower extremity swelling. PROCEDURES: Venous duplex imaging was performed in only the left lower extremity. The following venous structures were evaluated: common femoral vein, profunda vein, proximal portion of the greater saphenous vein, superficial femoral vein, and the popliteal vein. In addition, the posterior tibial and peroneal trunk were evaluated. FINDINGS: Normal 2-D Doppler and augmentation and compressibility throughout the lower extremity venous structures. Additional imaging through the proximal calf veins also reveals no thrombus. Limited evaluation of the greater saphenous vein is patent with no thrombus. CONCLUSIONS No DVT left lower extremity. Dr. Genesis Bolton DO (Electronically Signed) Final Date: 09 January 2025 15:51 S
--- NOTE | 2025-01-09 15:07 | XR_ITS ---
WS: [id number] Left ankle, 3 views, 01/09/2025 Clinical Data: swelling Comparison: Left ankle, 12/27/2024 Findings: There are 2 oblique screws reducing the medial malleolar fracture. There is a lateral plate fixed with multiple screws and additional 2 oblique screws reducing the distal left fibular fracture. XR/XR ankle LT min 3V* [id number] Impression: Stable internal fixation of bimalleolar fracture of the left ankle.
--- NOTE | 2025-01-09 15:22 | W.ED.EXTPRO ---
HPI - Extremity Problem General: Chief complaint: Extremity Injury, Lower Stated complaint: LEFT ANKLE PAIN AND SWELLING Time Seen by Provider: 01/09/25 15:07 History of Present Illness: 89-year-old female presents with some redness swelling of her left foot and lower leg. Patient did have surgery by the ceo na DR Arriaza on 11/15/24. Family reported to EMS that it just started today. Patient reports that has been going on for couple weeks. Patient is wearing a walking boot and is been somewhat nonweightbearing since the surgery. Associated symptoms: Deny chest pain or fever(s) Related Data Home Medications ?Medication ?Instructions ?Recorded ?Confirmed aspirin 81 mg tablet,delayed 81 mg PO DAILY 11/15/24 01/09/25 release (Robyn Low Dose Aspirin) acetaminophen 325 mg tablet 650 mg PO Q6H PRN pain or 01/09/25 01/09/25 discomfort bisacodyl 10 mg rectal suppository [address] DAILY PRN Constipation 01/09/25 01/09/25 doxepin 25 mg capsule 25 mg PO BEDTIME 01/09/25 01/09/25 hydrocodone 5 mg-acetaminophen 325 1 tab PO Q4H PRN moderate to 01/09/25 01/09/25 mg tablet severe pain magnesium hydroxide 400 mg/5 mL 30 ml PO DAILY PRN Constipation 01/09/25 01/09/25 oral suspension (Milk of Magnesia) ondansetron HCl 4 mg tablet 4 mg PO Q6H PRN nausea/emesis 01/09/25 01/09/25 polyethylene glycol 3350 17 17 g PO DAILY PRN Constipation 01/09/25 01/09/25 gram/dose oral powder (Miralax) sucralfate 1 gram tablet 1 g PO TID 01/09/25 01/09/25 Previous Rx's ?Medication ?Instructions ?Recorded levothyroxine 50 mcg tablet 50 mcg PO DAILY #90 tabs 06/19/24 omeprazole 40 mg capsule,delayed 40 mg PO DAILY #90 caps 07/23/24 release chlorthalidone 25 mg tablet 25 mg PO DAILY #90 tabs 07/27/24 gabapentin 300 mg capsule 300 mg PO TID #270 caps 10/02/24 oxybutynin chloride 10 mg 10 mg PO DAILY #90 tabs 10/03/24 tablet,extended release 24 hr baclofen 10 mg tablet 10 mg PO DAILY #90 tabs 10/23/24 sennosides 8.6 mg-docusate sodium 1 tab-cap PO BID #60 tabs 11/19/24 50 mg tablet (Senna-S) Allergies Allergy/AdvReac Type Severity Reaction Status Date / Time No Known Allergies Allergy Verified 12/27/24 06:51 Review of Systems Const: Denies: fever(s) or chills Card: Denies: chest pain or palpitations Resp: Denies: dyspnea or productive cough Musc: Reports: other (Please see HPI) Skin/Breast: Reports: other (Please see HPI) PFS ED PFSH: Medical History Overactive bladder Paroxysmal SVT (supraventricular tachycardia) zio at [facility] 11/22 4 episodes of 4 beats SVT Osteoporosis 8.7.24 at [facility]; femoral neck -2.4--hip is decreased; repeat 1yr Osteoarthritis, generalized CKD stage 3a, GFR 45-59 ml/min Postcholecystectomy diarrhea GERD without esophagitis Adult onset hypothyroidism Pain management contract signed 10.9.24 Controlled type 2 diabetes mellitus without complication, without long-term current use of insulin Chronic back pain greater than 3 months duration with R sided sciatica; has had several WHIT in past; las WHIT 1.31.24 R side Benign hypertension Hyperlipidemia Surgical History Status post ORIF of fracture of ankle (11/15/24) Dr Arriaza, trimalleloar fracture Hx of excision of mass 06/11/24 Dr Rincon Excision of subcutaneous mass of the right flank Mass of soft tissue of abdomen started 04/24--midaxillary line R lower rib cage area; surgically removed 06/24--benign Hx of cardiac cath 2016--normal Hx of colonoscopy 2007--diverticulosis History of anterior colporrhaphy cystocele repair fall 2010 and 09/12 Hx of laparoscopy 03/12--adhesions and extensive diverticulosis H/O: hysterectomy ovaries remaining; not cancer H/O vein stripping bilateral S/P cholecystectomy Family History Father Heart disease Rheumatoid arthritis Mother No problems noted. 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 Patient did present in a walking boot Neuro: COMMON NORMALS: patient oriented x3 SENSORIUM/ORIENTATION: Yes alert Psych: COMMON NORMALS: mental status grossly normal and speech normal SPEECH: Yes normal speech Skin: NARRATIVE SKIN EXAM: Mild erythema and warmth to the left foot. Course Vital Signs: Vital signs: Vital Signs Temperature 97.7 F 01/09/25 15:00 Pulse Rate 67 01/09/25 15:00 Respiratory Rate 18 01/09/25 15:00 Blood Pressure 154/65 01/09/25 15:00 Pulse Oximetry 99 01/09/25 15:00 Oxygen Delivery Me thod Room Air 01/09/25 15:00 MDM - Extremity (Nontraumatic) Medical Decision Making Patient's diagnostic studies were ordered, reviewed and interpreted by me. Patient does have a low sodium however this appears to be chronic when compared to her previous readings. Patient's negative CRP negative white count. She may likely have a mild early cellulitis since the foot is mildly warm and erythematous. Patient has a negative x-ray of the foot and negative venous Doppler for blood clot. I will give her 1 dose of Rocephin in the ER as she has an appointment with DR Arriaza tomorrow to further evaluate. Patient and her family will also follow-up with her primary care provider with a call tomorrow regarding her continued low sodium for any medication adjustments. I did recommend she increase her fluid intake with electrolyte containing fluids. Patient stable and discharged home. Lab Data 01/09/25 15:24 01/09/25 15:24 Radiology Impressions Ankle X-Ray 01/09/25 15:07 Impression: Stable internal fixation of bimalleolar fracture of the left ankle. Laboratory Results WBC 4.47 10^3/uL (3.29-11.43) 01/09/25 15:24 RBC 4.18 10^6/uL (3.85-5.65) 01/09/25 15:24 Hgb 12.50 g/dL (11.27-16.99) 01/09/25 15:24 Hct 38.4 % (36-47) 01/09/25 15:24 MCV 91.9 fl (85-98) 01/09/25 15:24 MCH 29.9 pg (27-33) 01/09/25 15:24 MCHC 32.6 g/dL (30-55) 01/09/25 15:24 RDW 11.7 % (12.1-15.1) L 01/09/25 15:24 Plt Count 222 10^3/cmm (157-399) 01/09/25 15:24 MPV 10.6 fL (7.4-10.4) H 01/09/25 15:24 Neut % (Auto) 36.9 % 01/09/25 15:24 Lymph % (Auto) 47.2 % 01/09/25 15:24 Callaway % (Auto) 10.1 % 01/09/25 15:24 Eos % (Auto) 4.3 % 01/09/25 15:24 Baso % (Auto) 1.3 % 01/09/25 15:24 Neut # (Auto) 1.65 10^3/uL (1.8-7.7) L 01/09/25 15:24 Lymph # (Auto) 2.1 10^3/uL (0.8-4.8) 01/09/25 15:24 Callaway # (Auto) 0.5 10^3/uL (0.2-0.9) 01/09/25 15:24 Eos # (Auto) 0.2 10^3/uL (0.0-0.8) 01/09/25 15:24 Baso # (Auto) 0.1 10^3/uL (0.0-0.1) 01/09/25 15:24 Nucleated RBC % (auto) 0 % 01/09/25 15:24 Nucleated RBCs # 0.0 /100WBC 01/09/25 15:24 ESR 9 mm/hr (0-15) 01/09/25 15:24 Sodium 125 mmol/L (136-145) L 01/09/25 15:24 Potassium 3.7 mmol/L (3.5-5.1) 01/09/25 15:24 Chloride 87 mmol/L (98-107) L 01/09/25 15:24 Carbon Dioxide 29 mmol/L (22-29) 01/09/25 15:24 Anion Gap 12.7 (5-19) 01/09/25 15:24 BUN 15 mg/dL (8-23) 01/09/25 15:24 Creatinine 1.1 mg/dL (0.5-0.9) H 01/09/25 15:24 GFR Calculation Not Reportable 01/09/25 15:24 Glucose 135 mg/dL (65-115) H 01/09/25 15:24 Calculated Osmolality 263 mOsm/kg (285-295) L 01/09/25 15:24 Calcium 9.1 mg/dL (8.5-10.5) 01/09/25 15:24 Total Bilirubin 0.2 mg/dL (0.15-1.2) 01/09/25 15:24 AST 16 U/L (0-32) 01/09/25 15:24 ALT 9 U/L (0-33) 01/09/25 15:24 Alkaline Phosphatase 123 U/L (35-105) H 01/09/25 15:24 C-Reactive Protein 3.0 mg/L (0.0-4.9) 01/09/25 15:24 Total Protein 6.6 g/dL (6.6-8.7) 01/09/25 15:24 Albumin 3.8 g/dL (3.5-5.2) 01/09/25 15:24 Globulin 2.8 g/dL (1.3-4.6) 01/09/25 15:24 All radiology interpretation(s) finalized by discharge Discharge Plan Discharge Patient Disposition: Home Clinical Impression: Swelling of left foot, Chronic hyponatremia Condition: Stable Prescriptions: No Action levothyroxine 50 mcg tablet 50 mcg PO DAILY Qty: 90 3RF chlorthalidone 25 mg tablet 25 mg PO DAILY Qty: 90 3RF omeprazole 40 mg capsule,delayed release(DR/EC) 40 mg PO DAILY Qty: 90 3RF gabapentin 300 mg capsule 300 mg PO TID Qty: 270 2RF oxybutynin chloride 10 mg tablet extended release 24hr 10 mg PO DAILY Qty: 90 3RF baclofen 10 mg tablet 10 mg PO DAILY Qty: 90 1RF aspirin [Robyn Low Dose Aspirin] 81 mg Tablet,Delayed Release (Dr/Ec) 81 mg PO DAILY sennosides-docusate sodium [Senna-S] 8.6-50 mg tablet 1 tab-cap PO BID Qty: 60 0RF acetaminophen 325 mg Tablet 650 mg PO Q6H PRN (Reason: pain or discomfort) sucralfate 1 gram Tablet 1 g PO TID ondansetron HCl [Zofran] 4 mg Tablet 4 mg PO Q6H PRN (Reason: nausea/emesis) magnesium hydroxide [Milk of Magnesia] 400 mg/5 mL Suspension 30 ml PO DAILY PRN (Reason: Constipation) bisacodyl 10 mg Suppository [address] DAILY PRN (Reason: Constipation) Rx Instructions: if no results from Milk of Magnesia polyethylene glycol 3350 [Miralax] 17 gram/dose Powder 17 g PO DAILY PRN (Reason: Constipation) doxepin 25 mg capsule 25 mg PO BEDTIME hydrocodone-acetaminophen 5-325 mg tablet 1 tab PO Q4H PRN (Reason: moderate to severe pain) Discharge Orders: Discharge ED (Routine); Ordered 01/09/25 Ordered By: Carmelo Keith Referrals: Le Ibrahim MD [Primary Care Provider, Family Practice] Discharge Diet: Usual diet Discharge Activity: Limit activity as instructed Patient Instructions: Cellulitis (ED), Hyponatremia (ED), Leg Edema (ED), Opioid Safety, Pain Management Activity Restrictions/Additional Instructions: Please keep your appointment with with Dr. Arriaza tomorrow and continue to follow his recommendations for activity and weightbearing. Please follow-up with your primary care provider tomorrow regarding your continued low sodium. Please drink plenty of fluids that contain electrolytes. Print Language: Greek Coding Level of Care Code ED Side Laster Staple for Lexa Kothari
[2025-01-09 15:32] LABS: Basophils # 0.1 10^3/uL (0.0-0.1); Basophils % 1.3 %; Eosinophils # 0.2 10^3/uL (0.0-0.8); Eosinophils % 4.3 %; Hematocrit 38.4 % (36-47); Lymphocytes # 2.1 10^3/uL (0.8-4.8); Lymphocytes % 47.2 %; Mean Corpuscular HGB Conc 32.6 g/dL (30-55); Mean Corpuscular Hemoglobin 29.9 pg (27-33); Mean Corpuscular Volume 91.9 fl (85-98); Mean Platelet Volume 10.6 fL (7.4-10.4); Monocytes # 0.5 10^3/uL (0.2-0.9); Monocytes % 10.1 %; Neutrophils # 1.65 10^3/uL (1.8-7.7); Neutrophils % 36.9 %; Nucleated Red Blood Cells % 0 %; Platelet Count 222 10^3/cmm (157-399); Red Blood Count 4.18 10^6/uL (3.85-5.65); Red Cell Distribution Width 11.7 % (12.1-15.1); White Blood Count 4.47 10^3/uL (3.29-11.43)
[2025-01-09 15:53] LABS: Alanine Aminotransferase 9 U/L (0-33); Albumin Level 3.8 g/dL (3.5-5.2); Alkaline Phosphatase 123 U/L (35-105); Anion Gap 12.7 (5-19); Aspartate Amino Transferase 16 U/L (0-32); Blood Urea Nitrogen 15 mg/dL (8-23); Calcium 9.1 mg/dL (8.5-10.5); Carbon Dioxide 29 mmol/L (22-29); Chloride 87 mmol/L (98-107); Creatinine Clr Calc Pharmacy 31.9846; Globulin 2.8 g/dL (1.3-4.6); Glucose 135 mg/dL (65-115); Osmolality Calculated 263 mOsm/kg (285-295); Potassium 3.7 mmol/L (3.5-5.1); Sodium 125 mmol/L (136-145); Total Bilirubin 0.2 mg/dL (0.15-1.2); Total Protein 6.6 g/dL (6.6-8.7)
[2025-01-09 16:29] LABS: Erythrocyte Sedimentation Rate 9 mm/hr (0-15)
[2025-01-09] MEDS: cefTRIAXone 1,000 mg SDV 1000 MG IVP (16:53)
[2025-01-09 17:03] VITALS: BP 158/73; PULSE 67; O2SAT 98
[2025-01-09 17:53] VITALS: BP 158/73; PULSE 67; O2SAT 97
== END 2025-01-09 18:22 | disposition home or self-care (01) ==
PROVIDERS: Emergency Provider Student in an Organized Health Care Education/Training Program; PCP Family Medicine
DX: M79.89 Other specified soft tissue disorders (principal); M25.572 Pain in left ankle and joints of left foot; N18.31 Chronic kidney disease, stage 3a; E03.9 Hypothyroidism, unspecified; E11.22 Type 2 diabetes mellitus with diabetic chronic kidney disease; E78.5 Hyperlipidemia, unspecified; E87.1 Hypo-osmolality and hyponatremia; I12.9 Hypertensive chronic kidney disease with stage 1 through stage 4 chronic kidney disease, or unspecified chronic kidney disease; Z79.82 Long term (current) use of aspirin; Z79.899 Other long term (current) drug therapy; Z87.891 Personal history of nicotine dependence
CPT/HCPCS: 36415; 73610; 80053; 85025; 85651; 86140; 93971; 96374; 99284; J0696

== ENCOUNTER → 2025-01-10 10:54 | Outpatient (BNVA) | payer MEDICARE, SELFPAY | PROVIDERS: PCP Family Medicine; Visit Provider Podiatrist Foot & Ankle Surgery | DX: Z98.890 Other specified postprocedural states (principal) | CPT/HCPCS: 99024 ==

== ENCOUNTER → 2025-01-24 14:18 | Outpatient (BNVA) | payer MEDICARE, SELFPAY | PROVIDERS: PCP Family Medicine; Visit Provider Podiatrist Foot & Ankle Surgery | DX: Z98.890 Other specified postprocedural states (principal); Z87.81 Personal history of (healed) traumatic fracture | CPT/HCPCS: 73610; 99024 ==

== ENCOUNTER → 2025-02-14 10:49 | Outpatient (BNVA) | payer MEDICARE, SELFPAY | PROVIDERS: PCP Family Medicine; Visit Provider Nurse Practitioner | DX: N18.31 Chronic kidney disease, stage 3a (principal); R10.31 Right lower quadrant pain; R10.32 Left lower quadrant pain; R10.30 Lower abdominal pain, unspecified | CPT/HCPCS: 81000; 85025; 87086 ==

== ENCOUNTER 2025-02-26 15:14 | Emergency (ER) | payer MEDICARE, SELFPAY ==
--- OUTSIDE RECORDS SUMMARY | 2024-07-02 04:00 | XMS_ITS ---
Author Organization [facility] Address [address] [place], [place] [id number] Care Team Providers Care Prescription Benefit Specialist Name Role Phone Juan Jose VILLANUEVA, Aravind Unavailable [phone] Kiet LA-C, [place] Unavailable Unavailable Agustin GODWIN, Terrie Unavailable [phone] REASON FOR VISIT New patient evaluation Encounters Encounter Location Date Provider Diagnosis [facility] [employer] [address] [place], [place] [id number] 07/02/2024 Terrie Velez Plan Of Treatment No Information Progress Notes * Annette EGAN MDOB:1935 (89 yo F)Acc No.[id number]:07/02/2024 Patient: Yamilet RODRIGUEZ Annette Dominguez Provider: CITLALI Moy :1935 A ge:89 Y S ex:Female Date:07/02/2024 Address:[address], [place] [facility] [id number] Subjective: * Chief Complaints: * 1 . New patient evaluation. * Medical History: Objective: * Vitals: Therapeutic Interventions: Assessment: Plan: * Treatment: * Images: * Electronic signature of Ness GODWIN on 02/26/2025 at 01:41 PM CDT Sign off status: Pending * Provider: CITLALI Moy Date: 09/02/2023 Generated for Joao charlton/Garcia/eTransmitting on: 02/26/2025 01:41 PM CDT
[2025-02-26 15:17] VITALS: BP 152/77; PULSE 66; TEMP 36.6; O2SAT 98
--- OUTSIDE RECORDS SUMMARY | 2025-02-26 15:20 | XMS_ITS | Clinical Summary ---
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
--- OUTSIDE RECORDS SUMMARY | 2025-02-26 15:20 | XMS_ITS | Clinical Summary ---
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 Name Role Phone Unavailable Primary Care Provider Unavailabl e Social History Tobacco Use Types Packs/Day Years Used Date Smoking Tobacco: Never Assessed Comments Unknown Sex and Gender Information Value Date Recorded Sex Assigned at Not on file Legal Sex Female 9:02 AM CDT Gender Identity Not on file Sexual Orientation Not on file Plan of Treatment Health Maintenance Due Date Last Done Comments DTAP/TDAP/TD VACCINES (1 - Tdap) 1954 PNEUMOCOCCAL VACCINE 50+ YEARS (1 of 1 - PCV) 04/30/19 85 ZOSTER VACCINE (1 of 2) 1985 OSTEOPOROSIS SCREENING 2000 RSV VACCINE (60+ or ) (1 - 1-dose 75+ series) 2010 INFLUENZA VACCINE (#1) 2025 Insurance [address] [place] [address] [employer] PPO [facility]
[2025-02-26 15:52] VITALS: BP 162/87; PULSE 72; O2SAT 94
--- NOTE | 2025-02-26 16:16 | ED_ITS ---
HPI - Female Genitourinary 2 General: Chief complaint: Urogenital-Female Stated complaint: groin area pain Time Seen by Provider: 02/26/25 15:35 History of Present Illness: 89-year-old female status post cholecyst ectomy and hysterectomy, aspirin for primary prevention, presented to ED with right lower quadrant pain. This has been ongoing and worsening over the last 1 week. She states it was more centrally located, and is more in her right lower quadrant and her hip. Denies any dysuria. Thinks it is worse with movement, however unsure. No effect with eating. Mild nausea or just does not feel good however no emesis. No change in stools. She did go to her primary care physician on 02/14 regarding this issue. She states this is worsening since that time. Associated symptoms: Reports abdominal pain and nausea; Deny headache(s) Related Data Home Medications ?Medication ?Instructions ?Recorded ?Confirmed aspirin 81 mg tablet,delayed 81 mg PO DAILY 11/15/24 0 02/14/25 release (Robyn Low Dose Aspirin) acetaminophen 325 mg tablet 650 mg PO Q6H PRN pain or 01/09/25 02/14/25 discomfort bisacodyl 10 mg rectal suppository 10 mg MT DAILY PRN Constipation 01/09/25 02/14/25 doxepin 25 mg capsule 25 mg PO BEDTIME 01/09/25 magnesium hydroxide 400 mg/5 mL 30 ml PO DAILY PRN Con stipation 01/09/25 02/14/25 oral suspension (Milk of Magnesia) ondansetron HCl 4 mg tablet 4 mg PO Q6H PRN nausea/raúl sis 01/09/25 02/14/25 polyethylene glycol 3350 17 17 g PO DAILY PRN Constipa tion 01/09/25 02/14/25 gram/dose oral powder (Miralax) sucralfate 1 gram tablet 1 g PO TID 01/09/25 02/14/25 Previous Rx's ?Medication ?Instructions ?Recorded levothyroxine 50 mcg tablet 50 mcg PO DAILY #90 tabs 1 08/19/23 omeprazole 40 mg capsule,delayed 40 mg PO DAILY #90 ca ps 07/23/24 release chlorthalidone 25 mg tablet 25 mg PO DAILY #90 tabs gabapentin 300 mg capsule 300 mg PO TID #270 caps 11/23 oxybutynin chloride 10 mg 10 mg PO DAILY #90 tabs /0 12/23 tablet,extended release 24 hr baclofen 10 mg tablet 10 mg PO DAILY #90 tabs 2 12/23 sennosides 8.6 mg-docusate sodium 1 tab-cap PO BID #60 tabs 11/19/24 50 mg tablet (Senna-S) ASO #1 ea 01/24/25 hydrocodone 5 mg-acetaminophen 325 1 tab PO Q4H PRN mo derate to 02/20/25 mg tablet severe pain 30 days #60 tabs methocarbamol 500 mg tablet 500 mg PO Q8H PRN muscle s pasm #30 02/26/25 tabs Allergies Allergy/AdvReac Type Severity Reaction Status Date / Time No Known Allergies Allergy Verified 02/26/25 15:22 Review of Systems 2 General: Reports: 10 or more systems reviewed and unremarkable except in HPI and below Const: Denies: fever(s) or chills Eyes: Denies: change in vision or blurry vision ENMT: Denies: throat pain or mouth pain Card: Denies: chest pain or palpitations Resp: Denies: dyspnea or productive cough GI: Reports: abdominal pain and nausea; Denies: vomiting : Denies: flank pain, difficulty voiding, dysuria or urinary frequency Musc: Reports: back pain (chronic); Denies: neck pain, extremity pain, extremity swelling, joint pain or joint swelling Skin/Breast: Denies: rash or pruritus Neuro: Denies: headache(s), numbness in extremities, weakness in extremities or sensory changes Psych: Denies: anxiety or depression Endo: Denies: cold intolerance or excessive sweating Joe/Lymph: Denies: easy bruising or easy bleeding All/Imm: Denies: urticaria or throat swelling PFSH ED 2 PFSH: Medical History (Updated 02/26/25 @ 18:29 by NANCY Bolaños) Oropharyngeal dysphagia Overactive bladder Paroxysmal SVT (supraventricular tachycardia) zio at [facility] 11/22 4 episodes of 4 beats SVT Osteoporosis 8.7.[address] [facility]; femoral neck -2.4--hip is decreased; repeat 1yr Osteoarthritis, generalized CKD stage 3a, GFR 45-59 ml/min Postcholecystectomy diarrhea GERD without esophagitis Adult onset hypothyroidism Pain management contract signed 10.9.24 Controlled type 2 diabetes mellitus without complication, without long-term current use of insulin Chronic back pain greater than 3 months duration with R sided sciatica; has had several WHIT in past; las WHIT 08.31.23 R side Benign hypertension Hyperlipidemia Surgical History Status post ORIF of fracture of ankle (11/15/24) Dr Arriaza, trimalleloar fracture Hx of excision of mass 06/11/24 Dr Rincon Excision of subcutaneous mass of the right flank Mass of soft tissue of abdomen started 04/24--midaxillary line R lower rib cage area; surgically removed 06/24--benign Hx of cardiac cath 2016--normal Hx of colonoscopy 2007--diverticulosis History of anterior colporrhaphy cystocele repair fall 2010 and 09/12 Hx of laparoscopy 03/12--adhesions and extensive diverticulosis H/O: hysterectomy ovaries remaining; not cancer H/O vein stripping bilateral S/P cholecystectomy Family History Father Heart disease Rheumatoid arthritis Mother No problems noted. 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 Current gender identity: Female Female Reproductive History: Spontaneous abortions: No Physical Exam 2 Const: COMMON NORMALS: no acute distress, average body habitus, patient oriented x3, no limitations, healthy appearing and alert HENMT: COMMON NORMALS: normocephalic, atraumatic and oropharynx normal; hearing grossly not normal bilaterally ([place] with hearing aid device) HEAD & SCALP: normocephalic and atraumatic MOUTH: Normal oral and palatal mucosa present, lip normal and tongue normal Neck/C-Spine: COMMON NORMALS: full ROM and no lymphadenopathy Lymph: LYMPHATIC: no lymphadenopathy noted Chest: COMMONS NORMALS: normal inspection of the chest and normal palpation of entire chest wall Resp: COMMON NORMALS: normal respiratory effort, No retractions and clear to auscultation bilaterally EFFORT & INSPECTION: Yes able to speak in complete sentences and Yes symmetric chest movement AUSCULTATION: clear to auscultation bilaterally Cardio: COMMON NORMALS: regular rate and regular rhythm RATE: regular rate RHYTHM: regular rhythm GI: COMMON NORMALS: Normal to inspection, nondistended, normoactive bowel sounds present, Soft to palpation and non-tender PALPATION: Yes Soft to palpation : COMMON NORMALS: Yes no CVA tenderness BLADDER/KIDNEY EXAM: Yes no CVA tenderness Back/Pelvis: COMMON NORMALS: no CVA tenderness Extremity: COMMON NORMALS: normal to inspection, full ROM and capillary refill normal Neuro: COMMON NORMALS: patient oriented x3 SENSORIUM/ORIENTATION: Yes alert Psych: COMMON NORMALS: mental status grossly normal, Normal thought process present, cooperative, normal affect and speech normal SPEECH: Yes normal speech THOUGHT PROCESS: Normal thought process present Skin: COMMON NORMALS: no rashes or lesions noted and no wounds GENERAL SKIN EXAM: no rashes or lesions noted Course 2 Vital Signs: Vital signs: Vital Signs Temperature 97.8 F 02/26/25 15:17 Pulse Rate 58 L 02/26/25 19:07 Respiratory Rate 17 02/26/25 17:54 Blood Pressure 154/67 02/26/25 19:07 Pulse Oximetry 100 02/26/25 19:07 Oxygen Delivery Me thod Room Air 02/26/25 18:00 MDM - Female Medical Decision Making Exam is significant for guarding, tenderness right lower quadrant, however as well left lower quadrant. She has positive Rovsing's, however cannot discern a psoas sign. In the event, she will need a CT with contrast. I do note that she is on chlorthalidone, and therefore we will give her IV fluids with [address] Last creatinine was 1.1. Will repeat her labs as well. Patient CT is fairly unremarkable. This does not appear to be infectious in nature. I suspect muscular. Will give Norflex x 1 here, and send metaxalone to the pharmacy. Medical Records I reviewed the patient's medical records. Lab Data I reviewed the patient's lab results. 02/26/25 16:21 02/26/25 16:21 Radiology Impressions Abdomen/Pelvis CT 02/26/25 16:17 IMPRESSION: 1. No acute findings. 2. Sigmoid diverticulosis Laboratory Results WBC 5.31 10^3/uL (3.29-11.43) 02/26/25 16:21 RBC 4.74 10^6/uL (3.85-5.65) 02/26/25 16:21 Hgb 13.80 g/dL (11.27-16.99) 02/26/25 16:21 Hct 43.9 % (36-47) 02/26/25 16:21 MCV 92.6 fl (85-98) 02/26/25 16:21 MCH 29.1 pg (27-33) 02/26/25 16:21 MCHC 31.4 g/dL (30-55) 02/26/25 16:21 RDW 12.4 % (12.1-15.1) 02/26/25 16:21 Plt Count 212 10^3/cmm (157-399) 02/26/25 16:21 MPV 11.7 fL (7.4-10.4) H 02/26/25 16:21 Neut % (Auto) 46.9 % 02/26/25 16:21 Lymph % (Auto) 42.2 % 02/26/25 16:21 [place] % (Auto) 7.5 % 02/26/25 16:21 Eos % (Auto) 2.1 % 02/26/25 16:21 Baso % (Auto) 1.1 % 02/26/25 16:21 Neut # (Auto) 2.49 10^3/uL (1.8-7.7) 02/26/25 16:21 Lymph # (Auto) 2.2 10^3/uL (0.8-4.8) 02/26/25 16:21 [place] # (Auto) 0.4 10^3/uL (0.2-0.9) 02/26/25 16:21 Eos # (Auto) 0.1 10^3/uL (0.0-0.8) 02/26/25 16:21 Baso # (Auto) 0.1 10^3/uL (0.0-0.1) 02/26/25 16:21 Nucleated RBC % (auto) 0 % 02/26/25 16:21 Nucleated RBCs # 0.0 /100WBC 02/26/25 16:21 Sodium 140 mmol/L (136-145) 02/26/25 16:21 Potassium 4.3 mmol/L (3.5-5.1) 02/26/25 16:21 Chloride 99 mmol/L (98-107) 02/26/25 16:21 Carbon Dioxide 28 mmol/L (22-29) 02/26/25 16:21 Anion Gap 17.3 (5-19) 02/26/25 16:21 BUN 24 mg/dL (8-23) H 02/26/25 16:21 Creatinine 1.2 mg/dL (0.5-0.9) H 02/26/25 16:21 GFR Calculation Not Reportable 02/26/25 16:21 Glucose 87 mg/dL (65-115) 02/26/25 16:21 Calculated Osmolality 293 mOsm/kg (285-295) 02/26/25 16:21 Lactic Acid 1.2 mmol/L (0.5-2.2) 02/26/25 16:21 Calcium 9.4 mg/dL (8.5-10.5) 02/26/25 16:21 Total Bilirubin 0.3 mg/dL (0.15-1.2) 02/26/25 16:21 AST 20 U/L (0-32) 02/26/25 16:21 ALT 20 U/L (0-33) 02/26/25 16:21 Alkaline Phosphatase 112 U/L (35-105) H 02/26/25 16:21 Total Protein 7.6 g/dL (6.6-8.7) 02/26/25 16:21 Albumin 4.4 g/dL (3.5-5.2) 02/26/25 16:21 Globulin 3.2 g/dL (1.3-4.6) 02/26/25 16:21 Lipase 27 U/L (13-60) 02/26/25 16:21 Urine Color Yellow (Yellow) 02/26/25 16:03 Urine Appearance Clear (CLEAR) 02/26/25 16:03 Urine pH 5.5 (5-7) 02/26/25 16:03 Ur Specific [place] 1.020 (1.005-1.030) 02/26/25 16:03 Urine Protein Negative (Negative) 02/26/25 16:03 Urine Glucose (UA) Negative (Normal) 02/26/25 16:03 Urine Ketones Trace (Negative) 02/26/25 16:03 Urine Blood Negative (Negative) 02/26/25 16:03 Urine Nitrate Negative (Negative) 02/26/25 16:03 Urine Bilirubin Negative (Negative) 02/26/25 16:03 Urine Urobilinogen 0.2 mg/dL (Negative) 02/26/25 16:03 Ur Leukocyte Esterase Trace (Negative) A 02/26/25 16:03 Urine RBC 0-2 /hpf (0-2) 02/26/25 16:03 Urine WBC 6-10 /hpf (0-5) 02/26/25 16:03 Ur Squamous Epith Cells 11-20 /hpf (0-5) H 02/26/25 16:03 Amorphous Sediment Not Reportable 02/26/25 16:03 Urine Bacteria None seen /hpf (NONE) 02/26/25 16:03 Hyaline Casts 0.81 /lpf 02/26/25 16:03 All radiology interpretation(s) finalized by discharge Discharge Plan Discharge Patient Disposition: Home Clinical Impression: Sigmoid diverticulosis, Abdominal pain, RLQ, Muscle ache, Obstipation Condition: Stable Prescriptions: New methocarbamol 500 mg tablet 500 mg PO Q8H PRN (Reason: muscle spasm) Qty: 30 0RF No Action levothyroxine 50 mcg tablet 50 mcg PO DAILY Qty: 90 3RF chlorthalidone 25 mg tablet 25 mg PO DAILY Qty: 90 3RF (DME) ASO See Rx Instructions .Route .MEDSUPPLY Qty: 1 0RF Rx Instructions: As directed omeprazole 40 mg capsule,delayed release(DR/EC) 40 mg PO DAILY Qty: 90 3RF gabapentin 300 mg capsule 300 mg PO TID Qty: 270 2RF oxybutynin chloride 10 mg tablet extended release 24hr 10 mg PO DAILY Qty: 90 3RF baclofen 10 mg tablet 10 mg PO DAILY Qty: 90 1RF hydrocodone-acetaminophen 5-325 mg tablet 1 tab PO Q4H PRN (Reason: moderate to severe pain) 30 Days Qty: 60 0RF aspirin [Robyn Low Dose Aspirin] 81 mg Tablet,Delayed Release (Dr/Ec) 81 mg PO DAILY sennosides-docusate sodium [Senna-S] 8.6-50 mg tablet 1 tab-cap PO BID Qty: 60 0RF acetaminophen 325 mg Tablet 650 mg PO Q6H PRN (Reason: pain or discomfort) sucralfate 1 gram Tablet 1 g PO TID ondansetron HCl [Zofran] 4 mg Tablet 4 mg PO Q6H PRN (Reason: nausea/emesis) magnesium hydroxide [Milk of Magnesia] 400 mg/5 mL Suspension 30 ml PO DAILY PRN (Reason: Constipation) bisacodyl 10 mg Suppository 10 mg MT DAILY PRN (Reason: Constipation) Rx Instructions: if no results from Milk of Magnesia polyethylene glycol 3350 [Miralax] 17 gram/dose Powder 17 g PO DAILY PRN (Reason: Constipation) doxepin 25 mg capsule 25 mg PO BEDTIME Discharge Orders: Discharge ED (Routine); Ordered 02/26/25 Ordered By: Lyndsey Fonseca Referrals: Le Ibrahim MD [Primary Care Provider, Family Practice] Discharge Diet: Full LIquid Patient Instructions: Diverticulosis (ED), Abdominal Pain (ED), Full Liquid Diet (DC), Patient Portal & [facility] Instructions Activity Restrictions/Additional Instructions: Bowel regimen: Take 2 senna S at night, MiraLAX in the morning, and add a probiotic to your regimen. Full liquid diet until 4?6 stools Do not take your baclofen. Methocarbamol has been sent to the pharmacy for muscle relaxer. No additional findings of concern were noted. It is important to follow-up with your primary care physician regarding today's visit and evaluation. Please call tomorrow for an appointment. Print Language: Turkish Coding Level of Care Code ED Mrb Engineer for Lexa Kothari
--- NOTE | 2025-02-26 16:17 | CTR_ITS ---
PROCEDURE INFORMATION: Exam: CT Abdomen And Pelvis With Contrast Exam date and time: 02/26/2025 5:37 PM Age: 89 years old Clinical indication: Abdominal pain; Localized; Right lower quadrant (rlq); Prior surgery; Surgery date: 6+ months; Surgery type: Gb, hysterectomy; Additional info: Rlq abdominal pain TECHNIQUE: Imaging protocol: Computed tomography of the abdomen and pelvis with contrast. Radiation optimization: All CT scans at this facility use at least one of these dose optimization techniques: automated exposure control; mA and/or kV adjustment per patient size (includes targeted exams where dose is matched to clinical indication); or iterative reconstruction. Contrast material: OMNIPAQUE 350; Contrast volume: 100 ml; Contrast route: INTRAVENOUS (IV); COMPARISON: CR XR hip LT 2-3V wo/w pel* [id number] 11/15/2024 12:49 AM RADIATION DOSE METRICS: Total DLP (mGy-cm): 653.2 FINDINGS: Lungs: Lung bases are clear. No pleural effusion. Liver: Normal. No mass. Gallbladder and biliary ducts: The gallbladder has been resected. Pancreas: Normal. No ductal dilation. Spleen: Normal. No splenomegaly. Adrenal glands: Normal. No mass. Kidneys and ureters: Normal. No hydronephrosis. Stomach and bowel: Multiple diverticula involve the sigmoid colon. There is no sign of diverticulitis. Appendix: The appendix is clearly identified and is unremarkable. Intraperitoneal space: Unremarkable. No free air. No significant fluid collection. Vasculature: Unremarkable. No abdominal aortic aneurysm. Lymph nodes: Unremarkable. No enlarged lymph nodes. Urinary bladder: Unremarkable as visualized. Reproductive: Unremarkable as visualized. Bones/joints: Unremarkable. No acute fracture. Soft tissues: Unremarkable. CT/CT abdomen pelvis w con* [id number] IMPRESSION: 1. No acute findings. 2. Sigmoid diverticulosis
[2025-02-26 16:51] LABS: Glucose Urine UA Negative (Normal); Nitrate Urine Negative (Negative); Specific Gravity, Urine 1.020 (1.005-1.030)
[2025-02-26 16:57] LABS: Add Urine Microscopic? YES
[2025-02-26 17:01] LABS: Hematocrit 43.9 % (36-47); Hemoglobin 13.80 g/dL (11.27-16.99); Mean Corpuscular HGB Conc 31.4 g/dL (30-55); Mean Corpuscular Hemoglobin 29.1 pg (27-33); Mean Corpuscular Volume 92.6 fl (85-98); Nucleated Red Blood Cells % 0 %; Platelet Count 212 10^3/cmm (157-399); Red Blood Count 4.74 10^6/uL (3.85-5.65); White Blood Count 5.31 10^3/uL (3.29-11.43)
[2025-02-26 17:17] LABS: Alanine Aminotransferase 20 U/L (0-33); Albumin Level 4.4 g/dL (3.5-5.2); Alkaline Phosphatase 112 U/L (35-105); Anion Gap 17.3 (5-19); Aspartate Amino Transferase 20 U/L (0-32); Blood Urea Nitrogen 24 mg/dL (8-23); Calcium 9.4 mg/dL (8.5-10.5); Carbon Dioxide 28 mmol/L (22-29); Chloride 99 mmol/L (98-107); Creatinine Clr Calc Pharmacy 28.8641; Globulin 3.2 g/dL (1.3-4.6); Glucose 87 mg/dL (65-115); Lipase 27 U/L (13-60); Osmolality Calculated 293 mOsm/kg (285-295); Potassium 4.3 mmol/L (3.5-5.1); Sodium 140 mmol/L (136-145); Total Protein 7.6 g/dL (6.6-8.7)
[2025-02-26 17:18] LABS: Lactic Sepsis W/Reflex 1.2 mmol/L (0.5-2.2)
[2025-02-26] MEDS: iohexol 350 mg/mL 500 mL Btl (per mL) IV (17:40)
[2025-02-26 17:54] VITALS: RESP 17; O2SAT 100
[2025-02-26] MEDS: ondansetron 2 mg/ML SDV 2 mL 4 MG IVP (17:54)
[2025-02-26] MEDS: morphine 4 mg/mL SDV 1 mL IVP (17:54)
[2025-02-26 18:00] VITALS: BP 154/67; PULSE 66; O2SAT 97
[2025-02-26 19:07] VITALS: BP 154/67; PULSE 58; O2SAT 100
== END 2025-02-26 19:09 | disposition home or self-care (01) ==
PROVIDERS: Emergency Provider Physician Assistant; PCP Family Medicine
DX: K57.30 Diverticulosis of large intestine without perforation or abscess without bleeding (principal); R10.31 Right lower quadrant pain; M79.10 Myalgia, unspecified site; K59.00 Constipation, unspecified; Z79.82 Long term (current) use of aspirin; Z87.891 Personal history of nicotine dependence; E78.5 Hyperlipidemia, unspecified; I12.9 Hypertensive chronic kidney disease with stage 1 through stage 4 chronic kidney disease, or unspecified chronic kidney disease; E11.22 Type 2 diabetes mellitus with diabetic chronic kidney disease; N18.31 Chronic kidney disease, stage 3a
CPT/HCPCS: 36415; 74177; 80053; 81001; 83605; 83690; 85025; 96361; 96374; 96375; 99285; J2270; J2405; J7030

== ENCOUNTER → 2025-03-14 12:50 | Outpatient (BNVA) | payer MEDICARE, SELFPAY | PROVIDERS: PCP Family Medicine; Visit Provider Podiatrist Foot & Ankle Surgery | DX: Z98.890 Other specified postprocedural states (principal) | CPT/HCPCS: 99024 ==

== ENCOUNTER → 2025-03-28 11:39 | Outpatient (BNVA) | payer MEDICARE, SELFPAY | PROVIDERS: PCP Family Medicine; Visit Provider Family Medicine | DX: N18.31 Chronic kidney disease, stage 3a (principal); R82.90 Unspecified abnormal findings in urine | CPT/HCPCS: 80048; 87086 ==